=== PATIENT | male | born 1940 | race Caucasian/White ===

== ENCOUNTER 2021-07-16 19:22 | Emergency (ER) | payer MEDICARE, SELFPAY ==
--- NOTE | ~2021-07-16 | CT_ITS ---
EXAMINATION: CT abdomen pelvis w con DATE: 07/16/2021 21:39 INDICATION: Left-sided abdominal pain TECHNIQUE: Computed tomography (CT) of the abdomen and pelvis was performed with 100 CC Omnipaque 350 intravenous contrast. Automated exposure control and iterative reconstruction technique were employe d. Exam dose: 483.35 mGy-cm total exam DLP. COMPARISON: 02/21/2017 CT abdomen pelvis FINDINGS: There is prominent multifocal left lower lobe basilar discoid scarring, also present on . No infiltrate or consolidation is noted at the lung bases. Borderline heart size. Right atrial and ventricular pacemaker leads. No pericardial or pleural effusi on. There are surgical clips around the diaphragmatic hiatus likely due to associated with prior hiatal h ernia repair. Status post Billroth type II partial gastrectomy with gastrojejunostomy. There are numerous stones in the dependent aspect of the gallbladder. Gallbladder wall thickness appe ars within upper limits of normal. No hepatic, splenic, pancreatic or adrenal space-occupying mass le nitish. There are numerous splenic calcified granulomas. There is pancreatic atrophy. 12 mm lower pole right renal cysts and occasional much smaller right renal cysts. There is bilateral renal scarring, much more prominent on the left, consistent with chronic pyeloneph ritis or renal infarcts.. No urinary tract calculus or hydroureteronephrosis. There is prostate enlar gement. History of prostate cancer. There is mild to moderate diffuse thickening of the urinary bladd er wall. There is atherosclerotic calcification but normal caliber of the abdominal aorta and iliac and femora l arteries. No intraperitoneal or retroperitoneal or pelvic mass lesion or adenopathy or ascites. There are numerous diverticula of the colon, primarily in the sigmoid and descending colon. No CT andrés dence of diverticulitis. No bowel obstruction, bowel wall thickening, pneumatosis or intraperitoneal free air. Small fat-containing abdominal hernia. There is a right inguinal hernia which contains a loop of nonobstructed small bowel and fat. There is a fat-containing smaller left inguinal hernia. Old healed left rib fractures. Status post sternotomy. Degenerative changes of the thoracic and lumba r spine. No suspicious osteolytic or osteoblastic lesions are noted. Bilateral hip osteoarthritis. 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 Reviewed, dictated and finalized at [facility]. 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
--- NOTE | ~2021-07-16 | XR_ITS ---
XR ribs LT 2V w CXR 2V DATE: 07/16/2021 20:59 INDICATION: Rib pain, pleuritic pain TECHNIQUE: PA and lateral chest. 3 views of the left ribs. COMPARISON: 02/09/2018 CT chest 01/31/2018 two-view chest FINDINGS: Status post sternotomy. Cardiomegaly. Transvenous dual-lead left-sided pacemaker with leads overlying right atrium and right ventricle. Is aortic calcification, ectasia and tortuosity. There is chronic left lower lung scarring, present on 01/31/2018. No interval pulmonary infiltrate or consolidation, pleural effusion or pulmonary vascular congestion or pneumothorax is evident. There is diffuse osteopenia. There is mild dextro scoliosis and degenerative change of the thoracic s pine. Surgical clips around the diaphragmatic hiatus, present on 01/31/2018. IMPRESSION: Status post sternotomy. Cardiomegaly. Aortic atherosclerosis. Chronic left lower lung scarring Reviewed, dictated and finalized at [facility].
[2021-07-16 19:38] VITALS: BP 132/69; PULSE 85; RESP 16; TEMP 36.7; O2SAT 97
--- NOTE | 2021-07-16 20:44 | ECG_ITS ---
Measurements Intervals Kelly Rate: 71 P: DE: 0 QRS: -59 QRSD: 209 T: 104 QT: 497 QTc: 542 Interpretive Statements ELECTRONIC VENTRICULAR PACEMAKER. ONE INTRINSIC COMPLEXES APPROPRIATELY SENSED ABNORMAL RHYTHM ECG NO PREVIOUS ECG AVAILABLE FOR COMPARISON Electronically Signed On 07-17-2021 16:03:16 CDT by Red Gao M.D.
--- NOTE | 2021-07-16 20:47 | ED.ABDPAIN ---
HPI - Abdominal Pain General Chief Complaint: Abdominal Pain Stated Complaint: abdominal pain Time Seen by Provider: 07/16/21 20:33 Source: patient Mode of arrival: ambulatory Limitations: no limitations History of Present Illness HPI narrative: 81-year-old male comes in today with complaints of left chest/left upper abdominal pain that woke him up out of his sleep at 3 AM. Patient denies any recent trauma but does note he was working out in his garden yesterday. Patient denies shortness of breath, nausea, vomiting, diarrhea, fevers, or any sick contacts. Patient states pain is worse with certain movements and palpation. Related Data Allergies Allergy/AdvReac Type Severity Reaction Status Date / Time latex Allergy Itching Verified 07/16/21 21:06 Review of Systems Review of Systems: CONSTITUTIONAL: Denies fever, chills, or sweats. EYES: Denies visual changes, redness, or discharge. ENT: Denies rhinorrhea, congestion, sore throat, or otalgia. CARDIOVASCULAR: Left chest wall pain. Denies palpitations, or edema. RESPIRATORY: Denies cough or dyspnea. GASTROINTESTINAL: Denies abdominal pain, nausea, vomiting, or diarrhea. GENITOURINARY: Denies dysuria or hematuria. SKIN: Denies rash or itching. MUSCULOSKELETAL: Left upper abdomen pain. Denies back pain, joint pain, or myalgia. NEUROLOGIC: Denies headache, numbness, dizziness, or weakness. PSYCHIATRIC: Denies anxiety or depression. Exam Narrative: CONSTITUTIONAL: Denies fever, chills, or sweats. EYES: Denies visual changes, redness, or discharge. ENT: Denies rhinorrhea, congestion, sore throat, or otalgia. CARDIOVASCULAR: Tenderness on palpation of left lower chest. Denies palpitations, or edema. RESPIRATORY: Denies cough or dyspnea. GASTROINTESTINAL: Tenderness to left upper abdominal pain. Denies nausea, vomiting, or diarrhea. GENITOURINARY: Denies dysuria or hematuria. SKIN: Denies rash or itching. MUSCULOSKELETAL: Denies back pain, joint pain, or myalgia. NEUROLOGIC: Denies headache, numbness, dizziness, or weakness. PSYCHIATRIC: Denies anxiety or depression. Course Course Emergency Course: Lab results, CT results and chest x-ray results reviewed with patient. Plan to discharge patient home Tylenol as needed for pain. Follow-up with primary next week. Patient in agreement with plan of care. Vital Signs Vital signs: Vital Signs Temperature 36.7 C 07/16/21 19:38 Pulse Rate 85 07/16/21 19:38 Respiratory Rate 16 07/16/21 19:38 Blood Pressure 132/69 07/16/21 19:38 Pulse Oximetry 97 07/16/21 19:38 Temperature 36.7 C 07/16/21 19:38 Pulse Rate 71 07/16/21 23:30 Respiratory Rate 18 07/16/21 23:30 Blood Pressure 169/84 H 07/16/21 23:30 Pulse Oximetry 96 07/16/21 23:30 MDM - Abdominal Pain Differential Diagnosis Differential diagnosis: Likely abdominal pain, constipation and other (Left rib fractures, costochondritis,) Medical Records Attestation: I reviewed the patient's medical records. Lab Data Attestation: I reviewed the patient's lab results. Result diagrams: 07/16/21 21:03 07/16/21 21:03 Labs: Lab Results 07/16/21 07/16/21 07/16/21 Range/Units 21:03 21:03 21:13 WBC 8.5 (4.5-10.0) K/mm3 RBC 4.81 (4.6-6.20) M/mm3 Hgb 15.2 (14.0-18.0) g/dL Hct 46.7 (42.0-52.0) % MCV 97.1 (80-100) fl MCH 31.6 (26-34) pg MCHC 32.5 (32-36) g/dl RDW 13.6 (11.5-14.5) % Plt Count 183 (150-375) k/mm3 MPV 9.8 (7.4-10.4) fl Immature Gran % (Auto) 0.4 (0-0.5) % Neut % (Auto) 79.4 H (45.5-73.1) % Lymph % (Auto) 8.6 L (18.3-44.2) % [place] % (Auto) 9.6 H (2.6-8.5) % Eos % (Auto) 1.5 (0-4.4) % Baso % (Auto) 0.5 (0.2-1.2) % Lymph # (Auto) 0.73 L (0.9-3.2) K/mm3 [place] # (Auto) 0.8 H (0.1-0.6) K/mm3 Eos # (Auto) 0.1 (0-0.3) K/mm3 Baso # (Auto) 0.0 (0.0-0.1) K/mm3 Abs Immat Gran (auto) 0.03 (0.00-0.031) K/mm3 Absolute Neuts (au
--- NOTE | 2021-07-16 20:53 | PC.NURSE ---
Pt to imaging at this time.
[2021-07-16 21:09] LABS: Basophils Percent Auto 0.5 % (0.2-1.2); Eosinophils Absolute Auto 0.1 K/mm3 (0-0.3); Eosinophils Percent Auto 1.5 % (0-4.4); Hematocrit 46.7 % (42.0-52.0); Hemoglobin 15.2 g/dL (14.0-18.0); Immature Granulocyte Absolute 0.03 K/mm3 (0.00-0.031); Immature Granulocyte Percent A 0.4 % (0-0.5); Lymphocytes Absolute Auto 0.73 K/mm3 (0.9-3.2); Lymphocytes Percent Auto 8.6 % (18.3-44.2); Mean Corpuscular HGB Conc 32.5 g/dl (32-36); Mean Corpuscular Hemoglobin 31.6 pg (26-34); Mean Corpuscular Volume 97.1 fl (80-100); Mean Platelet Volume 9.8 fl (7.4-10.4); Monocytes Absolute Auto 0.8 K/mm3 (0.1-0.6); Monocytes Percent Auto 9.6 % (2.6-8.5); Neutrophils Absolute Auto 6.7 K/mm3 (1.3-6.7); Neutrophils Percent Auto 79.4 % (45.5-73.1); Platelet Count Result 183 k/mm3 (150-375); Red Blood Count 4.81 M/mm3 (4.6-6.20); Red Cell Distribution Width 13.6 % (11.5-14.5); White Blood Count 8.5 K/mm3 (4.5-10.0)
[2021-07-16 21:10] VITALS: BP 154/76; PULSE 69; RESP 18; O2SAT 99
[2021-07-16 21:19] LABS: Alanine Aminotransferase 14 U/L (4-50); Albumin Level 4.1 g/dL (3.5-5.1); Alkaline Phosphatase 135 U/L (38-126); Anion Gap 7 mmol/L (8-16); Aspartate Amino Transferase 25 U/L (17-59); Bilirubin,Total 0.7 mg/dL (0.2-1.3); Blood Urea Nitrogen 22 mg/dL (9-20); Calcium 8.8 mg/dL (8.4-10.2); Carbon Dioxide 25 mmol/L (22-30); Chloride 105 mmol/L (98-107); Estimated CRCL calculation 49 ml/min; Estimated Glomerular Filt Rate > 60; Glucose 135 mg/dL (65-110); Lipase 31 U/L (23-300); Potassium 4.1 mmol/L (3.4-5.0); Sodium 137 mmol/L (137-145)
[2021-07-16 21:45] VITALS: BP 146/76; PULSE 78; RESP 18; O2SAT 98
[2021-07-16 21:46] LABS: Add Urine Microscopic? YES; Appearance Urine Clear (Clear); Bilirubin Urine Negative (Negative); Blood Urine Negative (Negative); Color Urine Yellow (Yellow); Glucose Urine UA Negative (Negative); Ketones Urine Trace mg/dL (Negative); Leukocyte Esterase Ur Negative LEU/UL (Negative); Mucus Urine Rare /lpf; Nitrate Urine Negative (Negative); Protein Urine Negative (Negative); RBC Urine 0-2 /hpf (0-2); Specific Grav Ur 1.017 (1.001-1.035); Squamous Epithelial Cell Urine Rare /hpf (Few); Urobilinogen Urine Negative mg/dL (<2.0); WBC Urine 0-3 /hpf
[2021-07-16] MEDS: SODIUM CHLORIDE 0.9% IV 1,000 ML 999 ML IV CONT (21:46)
[2021-07-16 22:15] VITALS: BP 165/81; PULSE 71; RESP 18; O2SAT 98
[2021-07-16 23:30] VITALS: BP 169/84; PULSE 71; RESP 18; O2SAT 96
== END 2021-07-16 23:34 | disposition home or self-care (01) ==
PROVIDERS: Emergency Provider Nurse Practitioner Family; PCP Family Medicine Adolescent Medicine
DX: R07.89 Other chest pain (principal); R10.12 Left upper quadrant pain; S29.011S Strain of muscle and tendon of front wall of thorax, sequela; K57.90 Diverticulosis of intestine, part unspecified, without perforation or abscess without bleeding; K80.20 Calculus of gallbladder without cholecystitis without obstruction; K40.20 Bilateral inguinal hernia, without obstruction or gangrene, not specified as recurrent; N40.0 Benign prostatic hyperplasia without lower urinary tract symptoms; I70.0 Atherosclerosis of aorta; I51.7 Cardiomegaly; X58.XXXA Exposure to other specified factors, initial encounter
CPT/HCPCS: 36415; 71046; 71100; 74177; 80053; 81001; 82248; 83690; 85025; 93005; 96360; 99284; J7030; Q9967

== ENCOUNTER 2021-09-22 01:12 | Day surgery (SDC) | payer MEDICARE, SELFPAY ==
--- NOTE | 2021-09-18 09:40 | PC.NURSE ---
Report to the Outpatient Waiting Room, entrance under the green pavilion located off [facility], at time 0730 on date __09/22/21 . OR Time: ___929 . - You and your visitor will be asked a series of questions to screen for COVID 19 for your protection. - Only one visitor is allowed at this time. - The patient visitor is requested to leave or wait in car when not with patient. - A mask is required within the hospital. Patients may have clear liquids (water, carbonated beverages, clear teas, apple juice) until 3 hours prior to surgery with a maximum of 20 ounces. - No food from midnight until time of surgery - Infants may have breast milk until 4 hours before surgery, infant formula 6 hours prior to surgery. - Children will be allowed to drink immediately following surgery. If applicable, please bring a bottle or sippy cup to assist with drinking. Juice, water, soda, and popsicles are readily available. For infants on formula, please bring formula the day of surgery. Pacifiers are allowed. Take the following medications with a SIP of water the morning of surgery: __ADVAIR,BUPROPION, SERTRALINE Medications to discontinue per physician ___DECREASE ASPIRIN TO 81 MG 7 WK PRE OP. ALL VITAMINS AND SUPPLEMENTS 3 DAYS PRE OP Date to take last dose__ASPIRIN DECREASED TO 81MG ON 09/15/21 ALL VIT/SUPP 09/18/21 Please no make-up, nail welsh, hairspray, perfume, deodorant, or body powder the day of surgery. No jewelry (including any body piercings) or valuables the day of surgery, leave them at home. Please take a shower or bath the night before, or the morning of, surgery with an antibacterial soap. Wear comfortable, loose fitting clothing. Children are encouraged to wear pajamas. - Jewelry must be removed prior to entering the operating room. Rings and piercings that are not removed may be cut off. - The hospital will not accept responsibility for valuables. - Please leave all valuables, including medications, at home the day of surgery. HIBICLENS SHOWER MORNING OF SURGERY If you are going home after surgery, a licensed construction driver must drive you home. - NO public transportation without another adult. - We recommend that an adult stay with you for 24 hours following discharge. - We also recommend that you do not drive, make important decision, drink alcoholic beverages, or take any drugs that were not prescribed by your health care provider for at least 24 hours after your discharge time. For Pediatric surgeries, we recommend two adults accompany the child home (only one inside the building at this time). Follow any additional instructions given to you from your surgeon. If you or anyone in your household have experienced Covid symptoms in the past week, please notify your surgeon or the nurse liaison at the phone number below for possible testing. Telephone instructions given to _PATIENT and asked if any additional questions and then verbalized understanding. Patient advised to call surgeon office or pre surgery nurse liaison [phone] if any additional questions.
[2021-09-18 09:47] VITALS: BMI 27.6
--- NOTE | 2021-09-21 14:53 | WPDANESEPPF ---
Anes - Initial Pre Proc Eval Procedure: Operation Date: 09/22/21 09:30 Proposed Procedures p Laparoscopic Bilateral Inguinal Hernia Repair with Mesh Davinci Assisted - Kole Shahid DO <Lenard Howe MD - Last Filed: 09/29/21 11:20> Date/Time: 09/21/21 14:53 <Lenard Howe MD - Last Filed: 09/29/21 11:20> Surgeon: Kole Shahid DO <Lenard Howe MD - Last Filed: 09/29/21 11:20> Pre Op Diagnosis: bilateral ing. hernia repair <Lenard Howe MD - Last Filed: 09/29/21 11:20> Patient Data Age: 81 Gender: M Height: 1.7 m Weight: 79.85 kg <Lenard Howe MD - Last Filed: 09/29/21 11:20> Allergies Allergy/AdvReac Type Severity Reaction Status Date / Time latex Allergy Itching/HIV Verified 09/22/21 07:14 ES <Lenard Howe MD - Last Filed: 09/29/21 11:20> Home Medications Medication Instructions Recorded Confirmed Type aspirin 325 mg tablet 325 mg PO DAILY 07/23/21 09/22/21 History bupropion HCl 300 mg 24 hr tablet, 300 mg PO QAM 07/23/21 09/22/21 History extended release mecobalamin (vitamin B12) 5,000 500 mcg PO HS 07/23/21 09/22/21 History mcg lozenge sertraline 25 mg tablet 25 mg PO DAILY #30 tabs 07/23/21 09/22/21 Rx tamsulosin 0.4 mg capsule 0.4 mg PO DAILY 07/23/21 09/22/21 History telmisartan 40 mg tablet 40 mg PO DAILY 07/23/21 09/22/21 History albuterol sulfate 90 mcg/actuation 2 inh inhalation PRN PRN shortness 09/18/21 09/18/21 History aerosol inhaler of breath or wheezing fluticasone 250 mcg-salmeterol 50 1 inh inhalation BID 09/18/21 09/22/21 History mcg/dose blistr powdr for inhalation (Advair Diskus) hydrocodone 5 mg-acetaminophen 325 1 tablet PO Q4H PRN pain #10 tabs 09/22/21 Rx mg tablet <Lenard Howe MD - Last Filed: 09/29/21 11:20> Patient hx anesthesia problems: none <Guy Jimenes DO - Last Filed: 09/22/21 08:31> Family hx anesthesia problems: none <Guy Jimenes DO - Last Filed: 09/22/21 08:31> Results Review: All pre-operative results and documents have been reviewed as part of the pre-operative evaluation. <Lenard Howe MD - Last Filed: 09/29/21 11:20> [facility] Past Medical History Medical History: Medical History (Updated 09/21/21 @ 14:53 by Lenard Howe MD) Atrial fibrillation CAD (coronary artery disease) COPD (chronic obstructive pulmonary disease) History of kidney stones History of prostate cancer 05/2016 Pacemaker Stomach ulcer <Lenard Howe MD - Last Filed: 09/29/21 11:20> Surgical History Surgical History: Surgical History (Updated 09/21/21 @ 14:53 by Lenard Howe MD) H/O resection of stomach S/P colon resection S/P triple vessel bypass <Lenard Howe MD - Last Filed: 09/29/21 11:20> Family History Family History: Family History Father Cerebrovascular accident Heart disease Hypertension Mother Cancer Sibling Kidney failure Heart failure Other Colon polyp Depression Malignant neoplasm of prostate <Lenard Howe MD - Last Filed: 09/29/21 11:20> Social History Social History: Social History Smoking packs per day: 0.5 Smoking cigarettes per day: 10.0 Years smoked: 60 Smoking pack-years: 30.00 Smoking status: Current every day smoker Tobacco type: cigarettes Alcohol intake: current Drinks per week: 14 Alcohol use details: BEER Substance use: never Substance use type: does not use Gender identity (if verbalized by the patient): Male Sexual Orientation (if Verbalized by the Patient): Straight or Heterosexual Spiritual care concerns: No Agree to blood products: Yes <Lenard Howe MD - Last Filed: 09/29/21 11:20> Anes - Eval Final PreProcedure Day of Procedure 09/21/21 14:53 <Lenard Howe MD - Last Filed
[2021-09-22] VITALS (9 sets, daily range): BP systolic 125–154; BP diastolic 69–103; PULSE 73–74; RESP 14–16; TEMP 36.1–36.3; O2SAT 95–99
[2021-09-22] MEDS: LACTATED RINGERS 1,000 ML 30 ML IV CONT ×2 (08:01→10:10)
[2021-09-22] MEDS: ACETAMINOPHEN 500 MG TABLET 1000 MG PO (08:01)
[2021-09-22] MEDS: KETOROLAC 15 MG/ML VIAL (*BKC) IV PUSH (08:03)
--- NOTE | 2021-09-22 10:08 | WPDHPUPDATE1 ---
History and Physical Update Update Date/Time: 09/22/21 10:08 History and Physical has been reviewed, including an updated exam of the patient. There are NO changes in the patient's condition. Risks, benefits, and alternatives have been discussed and questions answered. Patient agrees to proceed with procedure.
--- NOTE | 2021-09-22 10:08 | PM.IMHP ---
H&P: HPI History of Present Illness Date/Time: 09/22/21 10:08 Chief Complaint: Bilateral inguinal hernia Narrative: This is a 81-year-old man who presents for bilateral hernia repair. He reports no changes since last seen in the office. Review of Systems Review of Systems: All systems reviewed & are unremarkable except as noted in HPI and below Constitutional: Constitutional: Denies chills, Denies fever(s), Denies headache(s) and Denies weight loss Eyes: Eyes: Denies change in vision ENT: Denies dizziness, Denies headache(s), Denies neck mass and Denies throat swelling Cardiovascular: Cardiovascular: Denies chest pain, Denies lightheadedness and Denies dyspnea Respiratory: Respiratory: Denies cough, Denies dyspnea and Denies wheezing Gastrointestinal: Gastrointestinal: Denies abdominal pain, Denies change in bowel habits, Denies nausea and Denies vomiting Genitourinary: Genitourinary: Denies hematuria and Denies dysuria Musculoskeletal: Musculoskeletal: Reports as per HPI Integumentary/Breasts: Skin/Breast: Reports as per HPI Neurologic: Denies dizziness and Denies headache(s) Allergic/Immunologic: Allergic/Immunologic: Denies throat swelling and Denies wheezing [facility] Past Medical History Medical History (Updated 09/21/21 @ 14:53 by Lenard Howe MD) Atrial fibrillation CAD (coronary artery disease) COPD (chronic obstructive pulmonary disease) History of kidney stones History of prostate cancer 05/2016 Pacemaker Stomach ulcer Surgical History Surgical History (Updated 09/21/21 @ 14:53 by Lenard Howe MD) H/O resection of stomach S/P colon resection S/P triple vessel bypass Family History Family History Father Cerebrovascular accident Heart disease Hypertension Mother Cancer Sibling Kidney failure Heart failure Other Colon polyp Depression Malignant neoplasm of prostate Social History Social History Smoking packs per day: 0.5 Smoking cigarettes per day: 10.0 Years smoked: 60 Smoking pack-years: 30.00 Smoking status: Current every day smoker Tobacco type: cigarettes Alcohol intake: current Drinks per week: 14 Alcohol use details: BEER Substance use: never Substance use type: does not use Living arrangements: alone Gender identity (if verbalized by the patient): Male Sexual Orientation (if Verbalized by the Patient): Straight or Heterosexual Spiritual care concerns: No Agree to blood products: Yes Meds Home Medications and Allergies Home Medications Medication Instructions Recorded Confirmed Type aspirin 325 mg tablet 325 mg PO DAILY 07/23/21 09/22/21 History bupropion HCl 300 mg 24 hr tablet, 300 mg PO QAM 07/23/21 09/22/21 History extended release mecobalamin (vitamin B12) 5,000 500 mcg PO HS 07/23/21 09/22/21 History mcg lozenge sertraline 25 mg tablet 25 mg PO DAILY #30 tabs 07/23/21 09/22/21 Rx tamsulosin 0.4 mg capsule 0.4 mg PO DAILY 07/23/21 09/22/21 History telmisartan 40 mg tablet 40 mg PO DAILY 07/23/21 09/22/21 History albuterol sulfate 90 mcg/actuation 2 inh inhalation PRN PRN shortness 09/18/21 09/18/21 History aerosol inhaler of breath or wheezing fluticasone 250 mcg-salmeterol 50 1 inh inhalation BID 09/18/21 09/22/21 History mcg/dose blistr powdr for inhalation (Advair Diskus) Allergies Allergy/AdvReac Type Severity Reaction Status Date / Time latex Allergy Itching/HIV Verified 09/22/21 07:14 ES Vital Signs Vital Signs - 24 hr 09/22/21 08:07 Temperature 36.1 C L Pulse Rate 73 Respiratory Rate 16 Blood Pressure 125/103 H Pulse Oximetry 98 Oxygen Delivery Room Air Exam Const: General: no acute distress and alert Orientation/consciousness: patient oriented x3 HENMT: Head: normocephalic and atraumatic Ears: hearing grossly normal bilaterally Gener
[2021-09-22] MEDS: ceFAZolin 2 GM/D5W 50 ML 2 GM/50 ML BAG IVPB (10:49)
--- NOTE | 2021-09-22 12:32 | W.PM.PROC2 ---
Procedure Note - Detailed Date of Procedure 09/22/21 Pre-op Diagnosis Bilateral inguinal hernia Post-op Diagnosis Same (Bilateral indirect inguinal hernia) Procedure Performed Laparoscopic bilateral inguinal hernia repair with mesh, da Denny assisted Surgeon Kole Shahid DO Anesthesia General and Local (0.5% bupivacaine with epinephrine) Indications This is a 81-year-old man who presented with a right groin bulge that was causing him some discomfort. He 1st noticed some symptoms about [address] was performed which showed evidence of a right inguinal hernia containing a loop of bowel and fat and a small fat containing left inguinal hernia. Discussions were made with the patient about treatment options and decision was made to proceed with robotic assisted laparoscopic bilateral inguinal hernia repair with mesh. Findings Laparoscopic bilateral inguinal hernia repair was performed. The patient was found to have a moderate-sized indirect right inguinal hernia on the right and a very small indirect inguinal hernia on the left. Robotic transabdominal preperitoneal approach was utilized. A preperitoneal pocket was created on each side and large Bard 3DMax mid mesh was placed on each side overlying each myopectineal orifice. No specimens were obtained for pathology. Description of Procedure Procedure as well as risks, benefits, and alternatives were discussed with the patient. Written consent was obtained and placed in chart prior to procedure. Patient was brought back to surgical suite. Hewas placed supine on operating table. Time-out was done to confirm patient and procedure. Hewas then intubated by Anesthesia Department. Hisabdomen was prepped and draped in sterile fashion using chlorhexidine prep. 0.5% bupivacaine with epinephrine was infiltrated at each location for incision. An 8 mm incision was made in the left lateral abdomen, and a 5 mm Optiview trocar was advanced through the abdominal layers under direct visualization. Once inside the abdominal cavity, carbon dioxide insufflation was used to create a pneumoperitoneum. A camera was inserted and the abdominal cavity was inspected. The patient was placed in slight Trendelenburg position. An 8 millimeter incision was made on the right lateral abdomen and an 8 millimeter trocar was inserted under direct visualization. Another 8 millimeter incision was made just superior to the umbilicus and an 8 millimeter trocar was inserted under direct visualization. The 5 mm port was then removed and this was replaced with another 8 mm robotic port. The robotic arms were brought up to the patient's bedside and secured to the ports. The camera and instruments were inserted. I then moved over to the robotic console and took control of the camera and instruments. After careful inspection of the abdominal cavity, I began scoring the peritoneum along the right lower quadrant using scissors with electrocautery. The preperitoneal plane was entered and this was carefully dissected caudally along the inferior epigastric vessels. Careful dissection with scissors with electrocautery and blunt dissection was used to continue this dissection. I dissected far enough laterally to allow for mesh placement, and also dissected medially to identify the pubic arch and Tremaine's ligament. The hernia sac was identified and carefully dissected posteriorly. The cord contents were also identified and the peritoneum was carefully dissected far enough posteriorly to allow for mesh placement. Once an adequate pocket was created, I then placed the mesh within the preperitoneal pocket and carefully unfolded it. The mesh was centered on the hernia defect with adequate overlap circumferentially. The inferior edge of the mesh was inspected to ensure that it was far enough away from the peritoneal edge. The mesh appeared in proper position overlying the entire myopectineal orifice. The mesh was secured using 3-0 Vicryl simple inter
--- NOTE | 2021-09-22 13:22 | SUR.PHASEI ---
1310: Simple mask removed.
== END 2021-09-22 15:04 | disposition home or self-care (01) ==
PROVIDERS: PCP Family Medicine Adolescent Medicine; Visit Provider Surgery
PROC: 8E0Y4CZ Robotic Assisted Procedure of Lower Extremity, Percutaneous Endoscopic Approach (ICD-10-PCS; CPT 49650; principal; 2021-09-22 09:30)
DX: K40.20 Bilateral inguinal hernia, without obstruction or gangrene, not specified as recurrent (principal); I48.91 Unspecified atrial fibrillation; I25.10 Atherosclerotic heart disease of native coronary artery without angina pectoris; J44.9 Chronic obstructive pulmonary disease, unspecified; Z95.0 Presence of cardiac pacemaker; Z85.46 Personal history of malignant neoplasm of prostate; F17.210 Nicotine dependence, cigarettes, uncomplicated; Z79.82 Long term (current) use of aspirin; Z79.51 Long term (current) use of inhaled steroids
CPT/HCPCS: 49650; S2900; 36415; 86850; 86900; 86901; A9270; C1781; J0690; J1100; J1170; J1885; J2405; J2704; J2710; J3010; J7030; J7120

== ENCOUNTER 2022-01-05 13:06 | Outpatient (CLI) | payer MEDICARE, SELFPAY ==
--- NOTE | ~2022-01-05 | CT_ITS ---
EXAMINATION: CT brain wo con DATE: 01/05/2022 13:46 INDICATION: Frequent falls. Dizziness. TECHNIQUE: Computed tomography (CT) of the head was performed without intravenous contrast. The mA wa s adjusted according to patient size. Iterative reconstruction technique was employed. Exam dose: 60 5.33 mGy-cm total exam DLP. COMPARISON: 07/10/2011 CT brain FINDINGS: There is a chronic left cerebellar hemispheric infarct. Small lacunar right cerebellar lorene spheric infarct. Bilateral carotid siphon internal carotid artery calcifications. There is nonspecific diminished attenuation cerebral white matter, likely due to chronic small vessel ischemic changes. There is central and cortical cerebral volume loss. No intracranial mass lesion or recent cerebrovascular accident, midline shift or mass effect effect. No subdural or epidural hematoma. Bilateral ocular lens replacements. The mastoid air cells and included paranasal sinuses are normally developed and aerated. No fracture or bone destruction of the cranial vault. IMPRESSION: Chronic left cerebellar hemispheric infarct and chronic right cerebellar hemispheric lac unar infarct Cerebral atherosclerosis and chronic small vessel ischemic changes of the cerebral white matter Cerebral volume loss No acute intracranial finding Reviewed, dictated and finalized at [facility]. Reviewed, dictated and finalized at location A. IMPRESSION: Chronic left cerebellar hemispheric infarct and chronic right cere bellar hemispheric lacunar infarct Cerebral atherosclerosis and chronic small vessel ischemic changes of the cereb ral white matter Cerebral volume loss No acute intracranial finding
== END 2022-01-05 13:07 | disposition home or self-care (01) ==
LOC: ANHIMG 13:10
PROVIDERS: PCP Family Medicine Adolescent Medicine; Visit Provider Physician Assistant
DX: R29.6 Repeated falls (principal); I67.2 Cerebral atherosclerosis
CPT/HCPCS: 70450

== ENCOUNTER 2022-04-08 11:50 | Emergency (ER) | payer MEDICARE, SELFPAY ==
--- NOTE | ~2022-04-08 | XR_ITS ---
EXAMINATION: XR chest 2V DATE: 04/08/2022 12:38 INDICATION: Weakness, hypertension TECHNIQUE: PA and lateral views of the chest are obtained. COMPARISON: 07/16/2021 FINDINGS: The lungs are free of acute opacities. No pleural effusion or pneumothorax. Cardiomegaly is noted. Median sternotomy wires and mediastinal surgical clips are seen, likely from prior coronary a rtery bypass grafting. A dual-lead cardiac pacemaker of the left chest wall ends with leads in expect ed locations. Healed left-sided rib fractures are noted. There is moderate thoracic spondylosis. Surg ical changes are noted near the gastroesophageal junction. Calcified pulmonary nodules and calcified bilateral hilar lymph nodes are consistent with old granulomatous disease. IMPRESSION: 1. No acute cardiopulmonary abnormality. Reviewed, dictated and finalized at location A. TH AND FITNESS PROFESSOR
--- NOTE | 2022-04-08 11:57 | ECG_ITS ---
Measurements Intervals [place] Rate: 84 P: [place]: 0 QRS: -60 QRSD: 190 T: 106 QT: 437 QTc: 518 Interpretive Statements ELECTRONIC VENTRICULAR PACEMAKER PACED RHYTHM ALTERNATES WITH INTRINSIC RHYTHM WITH APPROPRIATE SENSING AND CAPTURE NONSPECIFIC T-WAVE ABNORMALITY ABNORMAL RHYTHM ECG COMPARED TO ECG 07/16/2021 21:50:08 NO SIGNIFICANT CHANGES Electronically Signed On 04-09-2022 7:32:58 VALIDATION LEADER by Red Gao M.D.
[2022-04-08 12:05] VITALS: BP 152/90; PULSE 79; RESP 16; TEMP 36.4; O2SAT 99
[2022-04-08 12:33] LABS: Basophils Absolute Auto 0.1 K/mm3 (0.0-0.1); Basophils Percent Auto 0.6 % (0.2-1.2); Eosinophils Absolute Auto 0.1 K/mm3 (0-0.3); Hematocrit 49.1 % (42.0-52.0); Hemoglobin 15.8 g/dL (14.0-18.0); Immature Granulocyte Absolute 0.02 K/mm3 (0.00-0.031); Immature Granulocyte Percent A 0.2 % (0-0.5); Lymphocytes Absolute Auto 0.79 K/mm3 (0.9-3.2); Lymphocytes Percent Auto 9.6 % (18.3-44.2); Mean Corpuscular HGB Conc 32.2 g/dl (32-36); Mean Corpuscular Hemoglobin 31.5 pg (26-34); Mean Platelet Volume 10.1 fl (7.4-10.4); Monocytes Absolute Auto 0.8 K/mm3 (0.1-0.6); Monocytes Percent Auto 10.1 % (2.6-8.5); Neutrophils Absolute Auto 6.5 K/mm3 (1.3-6.7); Neutrophils Percent Auto 78.5 % (45.5-73.1); Platelet Count Result 194 k/mm3 (150-375); Red Blood Count 5.01 M/mm3 (4.6-6.20); Red Cell Distribution Width 13.9 % (11.5-14.5); White Blood Count 8.2 K/mm3 (4.5-10.0)
[2022-04-08 12:48] VITALS: PULSE 71; RESP 24; O2SAT 98
[2022-04-08 12:59] LABS: Alanine Aminotransferase 26 U/L (6-50); Albumin Level 4.7 g/dL (3.5-5.1); Alkaline Phosphatase 130 U/L (38-126); Anion Gap 5 mmol/L (8-16); Aspartate Amino Transferase 28 U/L (17-59); Bilirubin,Total 0.6 mg/dL (0.2-1.3); Blood Urea Nitrogen 13 mg/dL (9-20); Calcium 9.3 mg/dL (8.4-10.2); Carbon Dioxide 29 mmol/L (22-30); Chloride 105 mmol/L (98-107); Estimated CRCL calculation 58 ml/min; Estimated Glomerular Filt Rate > 60; Glucose 100 mg/dL (65-110); Potassium 4.4 mmol/L (3.4-5.0); Sodium 139 mmol/L (137-145)
--- NOTE | 2022-04-08 13:32 | ED.WEAKNESS ---
HPI - Weakness General Chief complaint: Weakness Stated complaint: lethargic Time Seen by Provider: 04/08/22 12:20 Source: patient and family Mode of arrival: ambulatory Limitations: no limitations History of Present Illness HPI Narrative: 82-year-old with a history of hypertension and CAD, A. fib s/p pacemaker here with complaints of weakness for past 3 to 4 months. Patient states that he usually used to walk for 4 miles a day for the past 3 months he is unable to walk 2 blocks at a given stretcher. He states that he feels extremely weak. He denied any chest pain or shortness of breath. No history of fever or chills. He denies any nausea, vomiting or abdominal pain. Patient states that he has seen his primary Dr. Stratton who ordered lab work however patient decided to come to the ER for work-up. MD Complaint: generalized weakness Onset (ago): month(s) (4) Duration: constant Location: generalized Relieving factors: none Exacerbating factors: none Associated symptoms: denies other symptoms Related Data Home Medications Medication Instructions Recorded Confirmed aspirin 325 mg tablet 325 mg PO DAILY 07/23/21 04/07/22 mecobalamin (vitamin B12) 5,000 500 mcg PO HS 07/23/21 04/07/22 mcg lozenge tamsulosin 0.4 mg capsule 0.4 mg PO DAILY 07/23/21 04/07/22 telmisartan 40 mg tablet 40 mg PO DAILY 07/23/21 04/07/22 Allergies Allergy/AdvReac Type Severity Reaction Status Date / Time latex Allergy Itching/HIV Verified 04/07/22 09:42 ES Penicillins AdvReac Unknown Unknown Verified 04/07/22 09:42 Review of Systems Review of Systems: All systems reviewed & are unremarkable except as noted in HPI and below Constitutional: Constitutional: Reports no additional constitutional complaints Eyes: Eyes: Reports no additional eye complaints ENT: Reports system reviewed and no additional complaints, except as documented Cardiovascular: Cardiovascular: Reports no additional cardiovascular complaints Respiratory: Respiratory: Reports no additional respiratory complaints Gastrointestinal: Gastrointestinal: Reports no additional gastrointestinal complaints Musculoskeletal: Musculoskeletal: Reports no additional musculoskeletal complaints Integumentary/Breasts: Skin/Breast: Reports system reviewed and no additional complaints, except as docu Neurologic: Reports system reviewed and no additional complaints, except as documented Endocrine: Endocrine: Reports no additional endocrine complaints Hematologic/Lymphatic: Hematologic/Lymphatic: Reports no additional hematologic/lymphatic complaints [facility] Past Medical History Medical History Atrial fibrillation CAD (coronary artery disease) COPD (chronic obstructive pulmonary disease) History of kidney stones History of prostate cancer 05/2016 Pacemaker Stomach ulcer Surgical History Surgical History H/O resection of stomach History of bilateral carpal tunnel release (2013) Hx of inguinal hernia repair Laparoscopic bilateral inguinal hernia repair with mesh, da Denny assisted 09/22/2021 S/P colon resection S/P triple vessel bypass Family History Family History Father Cerebrovascular accident Heart disease Hypertension Mother Cancer Sibling Kidney failure Heart failure Other Colon polyp Depression Malignant neoplasm of prostate Social History Social History Smoking packs per day: 0.5 Smoking cigarettes per day: 10.0 Years smoked: 60 Smoking pack-years: 30.00 Smoking status: Current every day smoker Tobacco type: cigarettes Alcohol intake: current Drinks per week: 14 Alcohol use details: BEER Substance use: never Substance use type: does not use Gender identity (if verbalized by the patient): Male Sexual Orientatio
[2022-04-08 13:38] VITALS: PULSE 74; RESP 19; O2SAT 98
[2022-04-08 13:45] VITALS: BP 185/90; PULSE 82; RESP 25; O2SAT 98
== END 2022-04-08 14:06 | disposition home or self-care (01) ==
LOC: ANHED 13:51
PROVIDERS: Emergency Medicine; Emergency Provider Family Medicine; PCP Family Medicine Adolescent Medicine
DX: R53.1 Weakness (principal); I48.91 Unspecified atrial fibrillation; I25.10 Atherosclerotic heart disease of native coronary artery without angina pectoris; I10 Essential (primary) hypertension; J44.9 Chronic obstructive pulmonary disease, unspecified; Z95.1 Presence of aortocoronary bypass graft; Z95.0 Presence of cardiac pacemaker; Z87.442 Personal history of urinary calculi; Z85.46 Personal history of malignant neoplasm of prostate; Z79.82 Long term (current) use of aspirin; F17.210 Nicotine dependence, cigarettes, uncomplicated; R94.31 Abnormal electrocardiogram [ECG] [EKG]
CPT/HCPCS: 36415; 71046; 80053; 85025; 93005; 99283

== ENCOUNTER 2022-04-26 12:30 | Emergency (ER) | payer MEDICARE, SELFPAY ==
--- NOTE | ~2022-04-26 | XR_ITS ---
EXAMINATION: XR chest 2V Exam Date/Time: 04/26/2022 14:10 PRODUCTION CONTROLLER HISTORY: productive cough x 2months, SOB Comparison: 01/31/2018 04/08/2022. RESULT: Lines, tubes, and devices: Left chest pacer with intact leads. Fractured superior sternotomy wires, in stable position. Lungs and pleura: Patchy subsegmental left mid and right lower lobe airspace disease, with coarse in terstitial opacities in the left lung base. Cardiomediastinal silhouette: Stable. Other: No acute osseous or upper abdominal finding. IMPRESSION: Patchy bilateral airspace disease may reflect infection in the appropriate clinical context. This fin ding should be followed after appropriate time and treatment, to demonstrate resolution. Reviewed, dictated and finalized at location [facility]. UCTION CONTROLLER IMPRESSION: Patchy bilateral airspace disease may reflect infection in the appropriate clin ical context. This finding should be followed after appropriate time and treatm ent, to demonstrate resolution.
[2022-04-26 12:33] VITALS: BP 130/90; PULSE 88; RESP 14; TEMP 36.7; O2SAT 95
--- NOTE | 2022-04-26 13:45 | ED.SOB ---
HPI - SOB/Dyspnea General Chief Complaint: Shortness of Breath/Dyspnea Stated Complaint: shortness of breath, weakness and fatigue Time Seen by Provider: 04/26/22 13:36 History of Present Illness HPI Narrative: Pt presents with SOB and generalized weakness progressivley worsening over the last month. Pt has a cough productive of yellow sputum. Pt says he is so weak he has trouble getting out of the chair. Pt denies fever or CP or urinary symptoms. Related Data Home Medications Medication Instructions Recorded Confirmed aspirin 325 mg tablet 325 mg PO DAILY 07/23/21 04/07/22 mecobalamin (vitamin B12) 5,000 500 mcg PO HS 07/23/21 04/07/22 mcg lozenge tamsulosin 0.4 mg capsule 0.4 mg PO DAILY 07/23/21 04/07/22 telmisartan 40 mg tablet 40 mg PO DAILY 07/23/21 04/07/22 Allergies Allergy/AdvReac Type Severity Reaction Status Date / Time latex Allergy Itching/HIV Verified 04/07/22 09:42 ES Penicillins AdvReac Unknown Unknown Verified 04/07/22 09:42 Review of Systems Review of Systems: All systems reviewed & are unremarkable except as noted in HPI and below PMFSH Past Medical History Medical History Atrial fibrillation CAD (coronary artery disease) COPD (chronic obstructive pulmonary disease) History of kidney stones History of prostate cancer 05/2016 Pacemaker Stomach ulcer Surgical History Surgical History H/O resection of stomach History of bilateral carpal tunnel release (2013) Hx of inguinal hernia repair Laparoscopic bilateral inguinal hernia repair with mesh, da Denny assisted 09/22/2021 S/P colon resection S/P triple vessel bypass Family History Family History Father Cerebrovascular accident Heart disease Hypertension Mother Cancer Sibling Kidney failure Heart failure Other Colon polyp Depression Malignant neoplasm of prostate Social History Social History Smoking packs per day: 0.5 Smoking cigarettes per day: 10.0 Years smoked: 60 Smoking pack-years: 30.00 Smoking status: Current every day smoker Tobacco type: cigarettes Alcohol intake: current Drinks per week: 14 Alcohol use details: BEER Substance use: never Substance use type: does not use Gender identity (if verbalized by the patient): Male Sexual Orientation (if Verbalized by the Patient): Straight or Heterosexual Spiritual care concerns: No Agree to blood products: Yes Exam Const: General: healthy appearing Nutritional Appearance: well nourished Orientation/consciousness: patient oriented x3 Limitations: no limitations HENMT: Head: normal to inspection Eyes: Conjunctivae: conjunctivae normal Neck: Neck: normal visual inspection and no lymphadenopathy Chest: Chest palpation & inspection: normal inspection of the chest Resp: Effort & Inspection: normal respiratory effort Auscultation: clear to auscultation bilaterally Cardio: Rate: regular rate Rhythm: regular rhythm GI: GI Palp: Yes Soft to palpation and No Tenderness to palpation present (GI) Auscultation: normal bowel sounds Skin: General skin exam: normal color Rashes: no rashes Neuro: General: patient oriented x3, moves all extremities, no meningeal signs and no focal motor deficits Speech: normal speech Extrem: General: normal to inspection and no clubbing, cyanosis or edema Psych: Mental Status: mental status grossly normal Affect: normal affect Attitude: cooperative Course Vital Signs Vital signs: Vital Signs Temperature 98.1 F 04/26/22 12:33 Pulse Rate 88 04/26/22 12:33 Respiratory Rate 14 04/26/22 12:33 Blood Pressure 130/90 04/26/22 12:33 Pulse Oximetry 95 04/26/22 12:33 Temperature 98.1 F 04/26/22 12:33 Pulse Rate 88 04/26/22 14:16 Respiratory Rate 23 H
[2022-04-26 13:50] VITALS: PULSE 89; RESP 25
[2022-04-26] MEDS: ALBUTEROL SULFATE NEB 2.5 MG/3 ML INH 5 MG INHALATION (13:52)
[2022-04-26] MEDS: IPRATROPIUM BR 0.02% INH SOLN 0.5 MG/2.5 ML VIAL INHALATION (13:52)
[2022-04-26 14:01] VITALS: PULSE 86; RESP 20
[2022-04-26 14:16] VITALS: BP 146/81; PULSE 88; RESP 23; O2SAT 93
[2022-04-26] MEDS: methylPREDNISolone SOD SUCC 125 MG VIAL IV PUSH ×2 (14:29→16:28)
[2022-04-26 14:43] LABS: Basophils Percent Auto 0.3 % (0.2-1.2); Eosinophils Percent Auto 0.1 % (0-4.4); Hematocrit 49.4 % (42.0-52.0); Hemoglobin 16.4 g/dL (14.0-18.0); Immature Granulocyte Absolute 0.04 K/mm3 (0.00-0.031); Immature Granulocyte Percent A 0.4 % (0-0.5); Lymphocytes Absolute Auto 0.47 K/mm3 (0.9-3.2); Lymphocytes Percent Auto 4.2 % (18.3-44.2); Mean Corpuscular HGB Conc 33.2 g/dl (32-36); Mean Corpuscular Hemoglobin 31.5 pg (26-34); Mean Platelet Volume 9.8 fl (7.4-10.4); Monocytes Absolute Auto 1.1 K/mm3 (0.1-0.6); Monocytes Percent Auto 10.3 % (2.6-8.5); Neutrophils Absolute Auto 9.4 K/mm3 (1.3-6.7); Neutrophils Percent Auto 84.7 % (45.5-73.1); Platelet Count Result 205 k/mm3 (150-375); Red Cell Distribution Width 13.4 % (11.5-14.5); White Blood Count 11.1 K/mm3 (4.5-10.0)
[2022-04-26 14:50] LABS: INR 1.1; Prothrombin Time 13.8 Seconds (11.1-14.7)
[2022-04-26 14:51] LABS: Partial Thromboplastin Time 30.8 SECONDS (22.3-36.8)
[2022-04-26 14:55] LABS: Alanine Aminotransferase 26 U/L (6-50); Albumin Level 4.5 g/dL (3.5-5.1); Alkaline Phosphatase 133 U/L (38-126); Anion Gap 8 mmol/L (8-16); Aspartate Amino Transferase 31 U/L (17-59); Bilirubin,Total 1.4 mg/dL (0.2-1.3); Blood Urea Nitrogen 24 mg/dL (9-20); Calcium 9.4 mg/dL (8.4-10.2); Carbon Dioxide 27 mmol/L (22-30); Chloride 97 mmol/L (98-107); Estimated CRCL calculation 49 ml/min; Estimated Glomerular Filt Rate > 60; Glucose 115 mg/dL (65-110); Magnesium 2.1 mg/dL (1.6-2.3); Potassium 4.1 mmol/L (3.4-5.0); Sodium 132 mmol/L (137-145)
[2022-04-26 15:05] LABS: NT Pro B Type Natriuretic Pept 2330 pg/mL (5-100); Troponin I 0.028 ng/mL (0.000-0.034)
[2022-04-26 15:55] LABS: Influenza A QL RT-PCR Negative (Negative); Influenza B QL RT-PCR Negative (Negative); RSV RNA, RT-PCR Negative (Negative); SARS-CoV-2 RNA PCR Negative
== END 2022-04-26 17:34 | disposition home or self-care (01) ==
PROVIDERS: Emergency Provider Emergency Medicine; PCP Family Medicine Adolescent Medicine
DX: J44.0 Chronic obstructive pulmonary disease with (acute) lower respiratory infection (principal); J44.1 Chronic obstructive pulmonary disease with (acute) exacerbation; Z20.822 Contact with and (suspected) exposure to COVID-19; I48.91 Unspecified atrial fibrillation; I25.10 Atherosclerotic heart disease of native coronary artery without angina pectoris; J44.9 Chronic obstructive pulmonary disease, unspecified; Z90.3 Acquired absence of stomach [part of]; Z90.49 Acquired absence of other specified parts of digestive tract; Z95.1 Presence of aortocoronary bypass graft; Z85.46 Personal history of malignant neoplasm of prostate; Z87.442 Personal history of urinary calculi; Z79.82 Long term (current) use of aspirin; F17.210 Nicotine dependence, cigarettes, uncomplicated
CPT/HCPCS: 36415; 71046; 80053; 83735; 83880; 84484; 85025; 85610; 85730; 87637; 94640; 96365; 96375; 96376; 99284; J0456; J2930

== ENCOUNTER 2022-05-06 08:35 | Emergency (ER) | payer MEDICARE, SELFPAY ==
[2022-05-06] VITALS (14 sets, daily range): BP systolic 132–181; BP diastolic 58–119; PULSE 81–105; RESP 16–24; TEMP 36.4–36.8; O2SAT 96–100
--- NOTE | ~2022-05-06 | XR_ITS ---
EXAMINATION: XR shoulder LT 1V DATE: 05/06/2022 12:34 INDICATION: Left shoulder dislocation status post reduction. TECHNIQUE: A single view of left shoulder was obtained. COMPARISON: Left shoulder radiographs 05/06/2022 FINDINGS: There is anterior dislocation of left humeral head with respect to glenoid. No fracture. Th ere is moderate osteoarthritis of the acromioclavicular joint. Median sternotomy wires and mediastina l surgical clips are seen, likely from prior coronary artery bypass grafting. A pacer is noted. There are old healed left rib fractures. IMPRESSION: 1. Persistent anterior left shoulder dislocation. Reviewed, dictated and finalized at location A. FIRE CHARGER OPERATOR
--- NOTE | ~2022-05-06 | XR_ITS ---
Left Shoulder Technique: AP and scapular Y views were obtained. Clinical History: Pain, injury Findings: Anterior inferior dislocation of the left humeral head is present. AC joint intact. No defi nite acute fracture seen. Probable subacute to chronic fractures of the left fourth, fifth,, 6, and s eventh ribs. Soft tissues are unremarkable. Impression: Anteroinferior dislocation of the left humeral head. No definite acute fracture. Multiple subacute to chronic left rib fracture deformities, as noted above. Reviewed, dictated and finalized at location M. INIST HELPER Impression: Anteroinferior dislocation of the left humeral head. No definite acute fracture. Multiple subacute to chronic left rib fracture deformities, as noted above.
--- NOTE | ~2022-05-06 | CT_ITS ---
CT head without contrast Indication: Status post fall COMPARISON: 01/05/2022 Technique: Serial scans were obtained through the brain without the administration of contrast. Dose reduction technique was used on this scan by utilizing automated exposure control and iterative recon struction technique. The dose-length product (DLP) was 832.33 mGy-cm. Findings: There is no evidence of intracranial hemorrhage, mass lesion, or acute infarct. The ventri cles and subarachnoid spaces are dilated, consistent with mild to moderate atrophy. Low attenuation regions are seen within the periventricular white matter bilaterally, likely representing changes fro m chronic microvascular ischemic disease. There is no evidence of edema, mass effect or midline shif t. The visualized paranasal sinuses and mastoid air cells are clear. Impression: No intracranial hemorrhage, mass, or acute infarct. Atrophy and chronic white matter changes, as above. Reviewed, dictated and finalized at location . RNATIONAL MARKETING EXECUTIVE Impression: No intracranial hemorrhage, mass, or acute infarct. Atrophy and chronic white matter changes, as above.
--- NOTE | ~2022-05-06 | XR_ITS ---
EXAMINATION: XR shoulder LT 1V DATE: 05/06/2022 13:12 INDICATION: Left shoulder dislocation status post reduction. TECHNIQUE: A single view of left shoulder was obtained. COMPARISON: Left shoulder radiograph at 12:26 PM FINDINGS: Bone alignment is normal. No acute fracture. There is mild osteoarthritis of glenohumeral j oint and moderate osteoarthritis of acromioclavicular joint. There are multiple old healed left rib f ractures. A pacer is noted. IMPRESSION: 1. Normal bone alignment. 2. Polyarticular osteoarthritis. Reviewed, dictated and finalized at location A. THCARE ADMINISTRATOR
--- NOTE | ~2022-05-06 | XR_ITS ---
Left elbow Technique: AP, oblique, and lateral views were obtained. Clinical History: Pain Findings: No acute fracture or dislocation is seen. Osseous alignment is anatomic. Joint spaces are p reserved. There is no displacement of the fat pads, and soft tissues are unremarkable. Impression: Unremarkable radiographs. Reviewed, dictated and finalized at [facility]. ANICAL LEAD Impression: Unremarkable radiographs.
--- NOTE | ~2022-05-06 | XR_ITS ---
Left Humerus Technique: AP and lateral views were obtained. Clinical History: Pain Findings: Anterior inferior dislocation of the left humeral head present. No acute fracture identifie d. Probable subacute to chronic left rib fracture deformities are noted. Visualized joint spaces are grossly preserved. Soft tissues are unremarkable. Impression: Anteroinferior dislocation of the left humeral head. Probable subacute to chronic left rib fracture deformities. Reviewed, dictated and finalized at location . L ANALYST Impression: Anteroinferior dislocation of the left humeral head. Probable subacute to chronic left rib fracture deformities.
--- NOTE | ~2022-05-06 | XR_ITS ---
EXAMINATION: XR ribs LT 2V w CXR 2V DATE: 05/06/2022 12:13 INDICATION: Fall. Left rib fractures. TECHNIQUE: Frontal and lateral views of the chest and 2 views on 4 radiographs of the left ribs were obtained. COMPARISON: Chest 2 views 04/26/2022 FINDINGS: CHEST TWO VIEWS: The patient is rotated to his left. There is mild atelectasis at left lung base. No pleural effusion or pneumothorax. Cardiomegaly is noted. Median sternotomy wires and mediastinal surg ical clips are seen, likely from prior coronary artery bypass grafting. There is a left chest wall pa cer with leads in the right atrium and right ventricle. There is anterior left shoulder dislocation. LEFT RIBS: There are multiple old healed left rib fractures. IMPRESSION: 1. Anterior left shoulder dislocation. 2. No acute rib fracture. 3. Mild atelectasis at left lung base. 4. Cardiomegaly. Reviewed, dictated and finalized at location A. GE GROWER
--- NOTE | 2022-05-06 10:32 | ED.UPPEXIN ---
HPI - Extremity Injury (Upper) General Chief Complaint: Extremity Injury, Upper <Fay Anderson PA-C - Last Filed: 05/06/22 14:32> Stated Complaint: fall with LUE pain <DOMINIC Pimentel Last Filed: 05/06/22 14:32> Time Seen by Provider: 05/06/22 10:13 <DOMINIC Pimentel Last Filed: 05/06/22 14:32> Source: patient <DOMINIC Pimentel Last Filed: 05/06/22 14:32> Mode of arrival: ambulatory <DOMINIC Pimentel Last Filed: 05/06/22 14:32> Limitations: no limitations <DOMINIC Pimentel Last Filed: 05/06/22 14:32> History of Present Illness HPI narrative: This is a 82 year old male that presents to the ER after a fall yesterday with left shoulder pain. Reports he tripped while walking into his home. He is unsure if he hit his head. He did not lose consciousness. Reports left shoulder pain with decreased ROM. Denies neck pain, back pain, chest pain, shortness of breath, or vomiting. <DOMINIC Pimentel Last Filed: 05/06/22 14:32> Related Data Home Medications: Home Medications Medication Instructions Recorded Confirmed aspirin 325 mg tablet 325 mg PO DAILY 07/23/21 04/07/22 mecobalamin (vitamin B12) 5,000 500 mcg PO HS 07/23/21 04/07/22 mcg lozenge tamsulosin 0.4 mg capsule 0.4 mg PO DAILY 07/23/21 04/07/22 telmisartan 40 mg tablet 40 mg PO DAILY 07/23/21 04/07/22 <DOMINIC Pimentel Last Filed: 05/06/22 14:32> Allergies/Adverse Reactions: Allergies Allergy/AdvReac Type Severity Reaction Status Date / Time latex Allergy Itching/HIV Verified 04/07/22 09:42 ES Penicillins AdvReac Unknown Unknown Verified 04/07/22 09:42 <DOMINIC Pimentel Last Filed: 05/06/22 14:32> Review of Systems Review of Systems: CONSTITUTIONAL: Denies fever EYES: Denies visual changes CARDIOVASCULAR: Denies chest pain, or edema. RESPIRATORY: Denies dyspnea. GASTROINTESTINAL: Denies vomiting MUSCULOSKELETAL: Reports joint pain and myalgia. Denies back pain NEUROLOGIC: Denies headache, numbness, or weakness. <Fay Anderson PA-C - Last Filed: 05/06/22 14:32> All systems reviewed & are unremarkable except as noted in HPI and below <Fay Anderson PA-C - Last Filed: 05/06/22 14:32> [facility] Past Medical History Medical History: Medical History Atrial fibrillation CAD (coronary artery disease) COPD (chronic obstructive pulmonary disease) History of kidney stones History of prostate cancer 05/2016 Pacemaker Stomach ulcer <DOMINIC Pimentel Last Filed: 05/06/22 14:32> Surgical History Surgical History: Surgical History H/O resection of stomach History of bilateral carpal tunnel release (2013) Hx of inguinal hernia repair Laparoscopic bilateral inguinal hernia repair with mesh, da Denny assisted 09/22/2021 S/P colon resection S/P triple vessel bypass <Fay Anderson PA-C - Last Filed: 05/06/22 14:32> Family History Family History: Family History Father Cerebrovascular accident Heart disease Hypertension Mother Cancer Sibling Kidney failure Heart failure Other Colon polyp Depression Malignant neoplasm of prostate <DOMINIC Pimentel Last Filed: 05/06/22 14:32> Social History Social History: Social History Smoking packs per day: 0.5 Smoking cigarettes per day: 10.0 Years smoked: 60 Smoking pack-years: 30.00 Smoking status: Current every day smoker Tobacco type: cigarettes Alcohol intake: current Drinks per week: 14 Alcohol use details: BEER Substance use: never Substance use type: does not use Gender identity (if verbalized by the patient): Male Sexual Orientation (if Verbalized by the Patient): Straight or Heterosexual Spiritual care con
[2022-05-06] MEDS: ONDANSETRON INJ 4 MG/2 ML VIAL IV PUSH (10:36)
[2022-05-06] MEDS: MORPHINE SULFATE (*CRX) 4 MG/ML INJ IV PUSH (10:36)
[2022-05-06] MEDS: fentaNYL CITRATE INJ (*CRX) 100 MCG/2 ML VIAL 50 MCG IV PUSH (12:48)
--- NOTE | 2022-05-06 13:01 | PC.NURSE ---
20 mg [address] administered by Dr. Gabriel.
--- NOTE | 2022-05-06 13:03 | PC.NURSE ---
20 mg [address] administered by Dr. Gabriel.
== END 2022-05-06 14:50 | disposition home or self-care (01) ==
PROVIDERS: Emergency Provider Emergency Medicine; PCP Family Medicine Adolescent Medicine
DX: S43.015A Anterior dislocation of left humerus, initial encounter (principal); I48.91 Unspecified atrial fibrillation; I25.10 Atherosclerotic heart disease of native coronary artery without angina pectoris; J44.9 Chronic obstructive pulmonary disease, unspecified; F17.210 Nicotine dependence, cigarettes, uncomplicated; Z90.49 Acquired absence of other specified parts of digestive tract; Z95.1 Presence of aortocoronary bypass graft; Z95.0 Presence of cardiac pacemaker; Z85.46 Personal history of malignant neoplasm of prostate; Z87.442 Personal history of urinary calculi; M19.012 Primary osteoarthritis, left shoulder; I51.7 Cardiomegaly; W01.0XXA Fall on same level from slipping, tripping and stumbling without subsequent striking against object, initial encounter
CPT/HCPCS: 23650; 70450; 71046; 71100; 73020; 73030; 73060; 73080; 96374; 96375; 99285; J2270; J2405; J3010; J7030

== ENCOUNTER 2023-01-20 12:58 | Observation (INO) | payer MEDICARE, SELFPAY ==
[2023-01-20] VITALS (10 sets, daily range): BP systolic 142–179; BP diastolic 71–99; PULSE 75–99; RESP 18–23; TEMP 36.6–36.9; O2SAT 94–100; BMI 26.9
--- NOTE | ~2023-01-20 | XR_ITS ---
EXAMINATION: XR chest 2V DATE: 01/20/2023 14:04 INDICATION: Shortness of breath TECHNIQUE: PA and lateral views of the chest are obtained. COMPARISON: 05/06/2022 FINDINGS: There are small pleural effusions. There are minimal airspace opacities of the lung bases. No pneumothorax is identified. Cardiomegaly is noted. Median sternotomy wires and mediastinal surgica l clips are seen, likely from prior coronary artery bypass grafting. A dual-lead cardiac pacemaker of the left chest wall ends with leads in expected locations. Healed left-sided rib fractures are noted . IMPRESSION: 1. Small pleural effusions. 2. Bibasilar airspace opacities, consistent with atelectasis versus pneumonia versus pulmonary edema. 3. Cardiomegaly. Reviewed, dictated and finalized at location L. IMPRESSION: 1. Small pleural effusions. 2. Bibasilar airspace opacities, consistent with atelectasis versus pneumonia v ersus pulmonary edema. 3. Cardiomegaly.
--- NOTE | 2023-01-20 13:03 | ECG_ITS ---
Measurements Intervals [place] Rate: 86 P: [place]: 0 QRS: 28 QRSD: 154 T: -22 QT: 404 QTc: 486 Interpretive Statements ELECTRONIC VENTRICULAR PACEMAKER WITH INHIBITION RIGHT BUNDLE BRANCH BLOCK BASELINE ARTIFACT- I, II, III, AVR, AVL, AVF, V1, V4 NO FURTHER INTERPRETATION IS POSSIBLE ABNORMAL ECG COMPARED TO ECG 04/08/2022 12:01:11 RIGHT BUNDLE-BRANCH BLOCK NOW PRESENT Electronically Signed On 01-20-2023 15:06:28 CDT by Obi Shrestha D.O.
[2023-01-20 15:44] LABS: Basophils Percent Auto 0.5 % (0.2-1.2); Eosinophils Absolute Auto 0.1 K/mm3 (0-0.3); Eosinophils Percent Auto 0.6 % (0-4.4); Hematocrit 44.1 % (42.0-52.0); Hemoglobin 14.1 g/dL (14.0-18.0); Immature Granulocyte Absolute 0.04 K/mm3 (0.00-0.031); Immature Granulocyte Percent A 0.5 % (0-0.5); Immature Platelet Fraction Pct 5.4 % (0.9-11.2); Lymphocytes Absolute Auto 0.56 K/mm3 (0.9-3.2); Lymphocytes Percent Auto 7.1 % (18.3-44.2); Mean Corpuscular Hemoglobin 30.9 pg (26-34); Mean Corpuscular Volume 96.5 fl (80-100); Monocytes Absolute Auto 0.7 K/mm3 (0.1-0.6); Monocytes Percent Auto 9.4 % (2.6-8.5); Neutrophils Absolute Auto 6.5 K/mm3 (1.3-6.7); Neutrophils Percent Auto 81.9 % (45.5-73.1); Platelet Count Result 76 k/mm3 (150-375); Red Blood Count 4.57 M/mm3 (4.6-6.20); Red Cell Distribution Width 14.4 % (11.5-14.5); White Blood Count 7.9 K/mm3 (4.5-10.0)
--- NOTE | 2023-01-20 15:53 | ED.SOB ---
HPI - SOB/Dyspnea General Chief Complaint: Shortness of Breath/Dyspnea Stated Complaint: sob Time Seen by Provider: 01/20/23 15:21 History of Present Illness HPI Narrative: Patient is an 82-year-old male with a history of hypertension, COPD presenting with shortness of breath. Patient states that he has been feeling more short of breath over the last few weeks. States that it seems to get worse at night. States that sometimes he has to sit up to help it. Denies any leg swelling or chest pain or lightheadedness. States that he has had a more productive cough. He has been using his inhaler with temporary relief. He does still smoke socially. No fevers or chills, abdominal pain, vomiting, diarrhea. Related Data Home Medications Medication Instructions Recorded Confirmed aspirin 325 mg tablet 325 mg PO DAILY 07/23/21 01/20/23 mecobalamin (vitamin B12) 5,000 500 mcg PO HS 07/23/21 01/20/23 mcg lozenge tamsulosin 0.4 mg capsule 0.4 mg PO DAILY 07/23/21 01/20/23 Allergies Allergy/AdvReac Type Severity Reaction Status Date / Time latex Allergy Itching/HIV Verified 01/20/23 15:18 ES Penicillins AdvReac Unknown Unknown Verified 01/20/23 15:18 Review of Systems Review of Systems: All systems reviewed & are unremarkable except as noted in HPI and below PMFSH Past Medical History Medical History (Updated 01/23/23 @ 04:34 by Radha Hill MD) Atrial fibrillation CAD (coronary artery disease) COPD (chronic obstructive pulmonary disease) History of kidney stones History of prostate cancer 05/2016 Pacemaker Stomach ulcer Surgical History Surgical History H/O resection of stomach History of bilateral carpal tunnel release (2013) Hx of inguinal hernia repair Laparoscopic bilateral inguinal hernia repair with mesh, da Denny assisted 09/22/2021 S/P colon resection S/P triple vessel bypass Family History Family History Father Cerebrovascular accident Heart disease Hypertension Mother Cancer Sibling Kidney failure Heart failure Other Colon polyp Depression Malignant neoplasm of prostate Social History Social History Smoking packs per day: 0.5 Smoking cigarettes per day: 10.0 Years smoked: 67 Smoking pack-years: 33.50 Smoking status: Current every day smoker Tobacco type: cigarettes Alcohol intake: current Drinks per week: 14 Alcohol use details: BEER Substance use: never Substance use type: does not use Lack of Transportation: No Lack of Food: Never True Current Housing: I Have Housing Concerned About Future Housing: No Difficulty Paying Gas/Electric Bills: No Difficulty Paying for Meds: No Currently Unemployed: No Education: Decline to Answer Difficulty w/ Childcare or Family Care: No Living arrangements: alone Occupation/Education: retired Gender identity (if verbalized by the patient): Male Sexual Orientation (if Verbalized by the Patient): Straight or Heterosexual Spiritual care concerns: No Agree to blood products: Yes Exam Narrative: GENERAL: Well-appearing, no acute distress, pleasant and cooperative HEAD: Normocephalic, atraumatic. EYES: PERRLA and EOMI. ENT: Mucous membranes moist. NECK: Supple. CHEST: No respiratory distress. Wheezing bilaterally HEART: Regular rate and rhythm. ABDOMEN: Soft, nontender, nondistended EXTREMITIES: Normal range of motion. No edema. SKIN: Warm, dry, no rash. NEURO: No focal deficits. Alert and oriented x3. PSYCH: Normal mood and affect. Course Vital Signs Vital signs: Vital Signs Temperature 98.5 F 01/20/23 12:59 Pulse Rate 84 01/20/23 12:59 Respiratory Rate 18 01/20/23 12:59 Blood Pressure 154/71 H 01/20/23 12:59 Pulse Oximetry 100 01/20/23 12:59 Oxygen Delivery Room Air
[2023-01-20] MEDS: ALBUTEROL SULFATE NEB 2.5 MG/3 ML INH 10 MG INHALATION (16:12)
[2023-01-20] MEDS: IPRATROPIUM BR 0.02% INH SOLN 0.5 MG/2.5 ML VIAL INHALATION (16:12)
[2023-01-20] MEDS: methylPREDNISolone SOD SUCC 125 MG VIAL IV PUSH (16:23)
[2023-01-20 16:24] LABS: Alanine Aminotransferase 24 U/L (6-50); Albumin Level 3.9 g/dL (3.5-5.1); Alkaline Phosphatase 105 U/L (38-126); Anion Gap 5 mmol/L (8-16); Aspartate Amino Transferase 57 U/L (17-59); Bilirubin,Total 1.1 mg/dL (0.2-1.3); Blood Urea Nitrogen 12 mg/dL (9-20); Calcium 8.6 mg/dL (8.4-10.2); Carbon Dioxide 30 mmol/L (22-30); Chloride 103 mmol/L (98-107); Estimated CRCL calculation 56 ml/min; Estimated Glomerular Filt Rate > 60; Glucose 149 mg/dL (65-110); Potassium 3.6 mmol/L (3.4-5.0); Sodium 138 mmol/L (137-145)
[2023-01-20 16:40] LABS: NT Pro B Type Natriuretic Pept 5370 pg/mL (19.9-100)
[2023-01-20 16:50] LABS: Influenza A QL RT-PCR Negative (Negative); Influenza B QL RT-PCR Negative (Negative); RSV RNA, RT-PCR Negative (Negative); SARS-CoV-2 RNA PCR Negative (Negative)
--- NOTE | 2023-01-20 20:47 | ADMGEN ---
This patient, Justin Art, was admitted to IMU Room 210-01. Patient/family oriented to hospital policies and general routines including ID bracelet, bed and alarms, visiting hours, pain management, procedures, bathroom and other care routines, personal items, smoking policy, room service/diet, and visiting hours. Information on how to activate the Rapid Response Team has been discussed. Patient/Family are encouraged to report perceived risks to care and to ask questions if they do not understand what they are told or what they should do.
--- NOTE | 2023-01-20 23:55 | PM.IMHP ---
H&P: HPI History of Present Illness Date/Time: 01/20/23 23:55 Chief Complaint: SOB Narrative: 82 y/o M presents here with SOB with PMH of CAD, HTN, COPD, AFib, pacemaker, triple bypass graft, and prostate cancer. Patient presents to the ED earlier today with worsening shortness of breath over the last few weeks. SOB worse at night and has prevented patient from sleeping for the last 3 nights. patient reports some alleviation from symptoms with use of home albuterol inhaler, sitting upright in bed, and rest. Denies fever, URI symptoms, increased sputum production, chest pain, palpitations, nausea vomiting or diarrhea. No diaphoresis. Current smoker - social. Review of Systems Review of Systems: All systems reviewed & are unremarkable except as noted in HPI and below PMFSH Past Medical History Medical History Atrial fibrillation CAD (coronary artery disease) COPD (chronic obstructive pulmonary disease) History of kidney stones History of prostate cancer 05/2016 Pacemaker Stomach ulcer Surgical History Surgical History H/O resection of stomach History of bilateral carpal tunnel release (2013) Hx of inguinal hernia repair Laparoscopic bilateral inguinal hernia repair with mesh, da Denny assisted 09/22/2021 S/P colon resection S/P triple vessel bypass Family History Family History Father Cerebrovascular accident Heart disease Hypertension Mother Cancer Sibling Kidney failure Heart failure Other Colon polyp Depression Malignant neoplasm of prostate Social History Social History Smoking packs per day: 0.5 Smoking cigarettes per day: 10.0 Years smoked: 67 Smoking pack-years: 33.50 Smoking status: Current every day smoker Tobacco type: cigarettes Alcohol intake: current Drinks per week: 14 Alcohol use details: BEER Substance use: never Substance use type: does not use Lack of Transportation: No Lack of Food: Never True Current Housing: I Have Housing Concerned About Future Housing: No Difficulty Paying Gas/Electric Bills: No Difficulty Paying for Meds: No Currently Unemployed: No Education: Decline to Answer Difficulty w/ Childcare or Family Care: No Living arrangements: alone Occupation/Education: retired Gender identity (if verbalized by the patient): Male Sexual Orientation (if Verbalized by the Patient): Straight or Heterosexual Spiritual care concerns: No Agree to blood products: Yes Meds Home Medications and Allergies Home Medications Medication Instructions Recorded Confirmed Type aspirin 325 mg tablet 325 mg PO DAILY 07/23/21 01/20/23 History mecobalamin (vitamin B12) 5,000 500 mcg PO HS 07/23/21 01/20/23 History mcg lozenge tamsulosin 0.4 mg capsule 0.4 mg PO DAILY 07/23/21 01/20/23 History bupropion HCl 300 mg 24 hr tablet, 300 mg PO QAM #30 tabs 10/14/22 01/20/23 Rx extended release fluticasone 250 mcg-salmeterol 50 1 inh inhalation BID #60 ea 10/14/22 01/20/23 Rx mcg/dose blistr powdr for inhalation (Advair Diskus) telmisartan 40 mg tablet 40 mg PO DAILY #90 tabs 11/08/22 01/20/23 Rx albuterol sulfate 90 mcg/actuation 2 inh inhalation QID PRN shortness 11/29/22 01/20/23 Rx aerosol inhaler of breath or wheezing #8.5 grams Allergies Allergy/AdvReac Type Severity Reaction Status Date / Time latex Allergy Itching/HIV Verified 01/20/23 15:18 ES Penicillins AdvReac Unknown Unknown Verified 01/20/23 15:18 Vital Signs Vital Signs - 24 hr 01/20/23 12:59 01/20/23 15:05 01/20/23 15:37 Temperature 98.5 F 97.9 F Pulse Rate 84 92 Respiratory Rate 18 21 H Blood Pressure 154/71 H 142/78 H Pulse Oximetry 100 96 100 Oxygen Delivery Room Air Room Air 01/20/23 16:15
[2023-01-21] VITALS (22 sets, daily range): BP systolic 136–162; BP diastolic 72–85; PULSE 71–121; RESP 18–20; TEMP 36.1–36.4; O2SAT 96–100
--- NOTE | 2023-01-21 | ECHO_ITS ---
Patient Info Name: Justin Art Age: 82 years : 1940 Gender: Male Ht: 67 in Wt: 171 lbs BSA: 1.93 m2 HR: 61 bpm BP: 138 / 81 mmHg Heart Rhythm: Atrial Fibrillation, Paced Technical Quality: Fair Exam Date: 01/21/2023 10:02 AM Exam Location: [facility] Pulmonary Exam Room: 210 Patient Status: Inpatient Admit Date: 01/20/2023 Staff Ordering Physician: Betty Calero APRN Office Helper: Kelsi Hale RDCS Attending Provider: Clayton Ac MD Referring Physician: Abdias ACEVEDO; Exam Type: CA echo doppler color flow Study Info Indications - ppm cabg elvated bnp sob Complete two-dimensional, color flow and Doppler transthoracic echocardiogram is performed. Summary 1. Complete two-dimensional, color flow and Doppler transthoracic echocardiogram is performed. 2. Left ventricular enlargement with severely depressed systolic function ejection fraction 25-30%. 3. Severe biatrial dilation. 4. Pacemaker leads noted. 5. Paced rhythm intrinsic rhythm is atrial fibrillation. 6. Mild sclerosis of the aortic valve with small amount of AI. 7. Mild mitral and tricuspid insufficiency. 8. At least moderately elevated pulmonary artery pressure. Left Ventricle Left ventricular chamber dimension is moderately enlarged. Left ventricular systolic function is severely reduced, estimated at 25-30%. The left ventricular diastolic function is abnormal. Right Ventricle Right ventricular chamber dimension is normal. Linear artifact in right ventricle suggestive of catheter(s), pacemaker lead(s), or ICD lead(s). Left Atria Left atrial chamber dimension is severely enlarged. Right Atria Right atrial chamber dimension is severely enlarged. Linear artifact in the right atrium suggestive of catheter(s), pacemaker lead(s), or ICD lead(s). Aortic Valve The aortic valve is trileaflet. There is moderate aortic valve sclerosis. There is mild aortic valve stenosis with a peak velocity of 142 cm/s, mean gradient of 4 mmHg, and aortic valve area of 2.7 cm2. There is mild aortic valve regurgitation. Pulmonic Valve The pulmonic valve is normal. Mitral Valve The mitral valve has normal leaflets. There is mild mitral valve regurgitation. Tricuspid Valve The tricuspid valve leaflets are normal. There is mild tricuspid valve regurgitation. Moderate pulmonary hypertension, estimated pulmonary arterial systolic pressure is 65 mmHg. Pericardium/Pleural The pericardium appears normal. Aorta The aortic root size at the sinus of Valsalva is not well visualized. Left Ventricular Outflow Tract Name Value Normal LVOT 2D LVOT Diameter 2.1 cm LVOT Doppler LVOT Peak Gradient 4 mmHg LVOT Mean Gradient 2 mmHg LVOT VTI 18 cm LVOT VTI/AV VTI Ratio 0.8 LVOT Stroke Volume 60 ml LVOT CO 14.6 l/min LVOT CI 7.6 l/min/m2 Pulmonic Valve Name Value Normal
[2023-01-21 01:11] LABS: Hematocrit 41.7 % (42.0-52.0); Hemoglobin 13.6 g/dL (14.0-18.0); Immature Granulocyte Absolute 0.02 K/mm3 (0.00-0.031); Immature Granulocyte Percent A 0.3 % (0-0.5); Immature Platelet Fraction Pct 5.8 % (0.9-11.2); Lymphocytes Absolute Auto 0.13 K/mm3 (0.9-3.2); Lymphocytes Percent Auto 2.2 % (18.3-44.2); Mean Corpuscular HGB Conc 32.6 g/dl (32-36); Mean Corpuscular Hemoglobin 31.2 pg (26-34); Mean Corpuscular Volume 95.6 fl (80-100); Mean Platelet Volume 10.8 fl (7.4-10.4); Monocytes Absolute Auto 0.1 K/mm3 (0.1-0.6); Monocytes Percent Auto 1.2 % (2.6-8.5); Neutrophils Absolute Auto 5.6 K/mm3 (1.3-6.7); Neutrophils Percent Auto 96.3 % (45.5-73.1); Platelet Count Result 136 k/mm3 (150-375); Red Blood Count 4.36 M/mm3 (4.6-6.20); Red Cell Distribution Width 14.2 % (11.5-14.5); White Blood Count 5.8 K/mm3 (4.5-10.0)
[2023-01-21 01:19] LABS: Hemoglobin A1C 5.6 % (<5.7)
[2023-01-21 01:22] LABS: Partial Thromboplastin Time 30.8 SECONDS (22.3-36.8)
[2023-01-21] MEDS: HEPARIN SOD/D5W 100 UNITS/ML 25,000 UNITS/250 ML BAG 9 UNITS IV CONT (02:54)
[2023-01-21] MEDS: ALBUTEROL SULFATE NEB 2.5 MG/3 ML INH INHALATION ×3 (08:25→21:38)
[2023-01-21] MEDS: IPRATROPIUM BR 0.02% INH SOLN 0.5 MG/2.5 ML VIAL INHALATION ×3 (08:25→21:38)
[2023-01-21 08:26] LABS: Partial Thromboplastin Time 41.9 SECONDS (22.3-36.8)
[2023-01-21 08:28] LABS: Anion Gap 7 mmol/L (8-16); Blood Urea Nitrogen 13 mg/dL (9-20); Calcium 8.9 mg/dL (8.4-10.2); Carbon Dioxide 26 mmol/L (22-30); Chloride 105 mmol/L (98-107); Estimated CRCL calculation 68 ml/min; Estimated Glomerular Filt Rate > 60; Glucose 162 mg/dL (65-110); Potassium 4.1 mmol/L (3.4-5.0); Sodium 138 mmol/L (137-145)
--- NOTE | 2023-01-21 08:33 | PM.IMPN ---
Progress Note: A&P Assessment and Plan (1) SOB (shortness of breath): Code(s): R06.02 - Shortness of breath Status: Acute Assessment and Plan: albuterol and atrovent nebulizers Q6HRT. home inhalers continued: albuterol, advair Solu-Medrol 125 mg, 1 time dose given in ED elevated BNP: currently 5370, 2330 on 04/26/22 viral PCR negative for influenza A, influenza B, COVID, RSV echo pending (2) Elevated troponin: Code(s): R77.8 - Other specified abnormalities of plasma proteins Status: Acute Assessment and Plan: trop x3: 0.028 -> 5.960 -> 5.180. cardiac monitoring consult cardiology - Recommended initiating heparin drip and ordering echo. (3) Thrombocytopenia: Code(s): D69.6 - Thrombocytopenia, unspecified Status: Acute Assessment and Plan: platelets improved from 75 to 136, monitor (4) Hypertension: Code(s): I10 - Essential (primary) hypertension Status: Acute Assessment and Plan: continue home telmisartan 40 mg Blood pressures reviewed 01/21 Plan Chronic Conditions - supplements: continue home B12 - home bupropion and tamsulosin continued - elevated glucose: A1C 5.6 Diet: NPO GI Prophylaxis: not currently indicated DVT Prophylaxis: SCDs, heparin gtt started Lines: pIV Code Status: DNR Subjective Date/time seen: 01/21/23 08:33 Interval history: 82 y/o M presents here with SOB with PMH of CAD, HTN, COPD, AFib, pacemaker, triple bypass graft, and prostate cancer. No overnight events noted. No chest pain or shortness of breath. No nausea, vomiting or diarrhea. No fevers or chills. Review of Systems Review of Systems: 12 point review of systems was assessed and was negative except as noted in the HPI Exam Narrative: General: No acute distress, alert and oriented per baseline HEENT: Atraumatic, normocephalic, mucous membranes moist CV: Irregularly irregular, S1, S2 Lungs: Clear to auscultation bilaterally, no rales or crackles noted, no wheezes, good air entry Abdomen: Soft, nontender, nondistended Extremities: Normal to inspection Skin: No rashes noted, no lesions or wounds seen Psych: Euthymic, normal affect Objective Data Vital Signs Vital Signs: Vital Signs - 24 hr 01/20/23 12:59 01/20/23 15:05 01/20/23 15:37 Temperature 98.5 F 97.9 F Pulse Rate 84 92 Respiratory Rate 18 21 H Blood Pressure 154/71 H 142/78 H Pulse Oximetry 100 96 100 Oxygen Delivery Room Air Room Air 01/20/23 16:15 01/20/23 16:59 01/20/23 17:19 Temperature Pulse Rate 99 82 99 Respiratory Rate 23 H 19 21 H Blood Pressure 156/84 H Pulse Oximetry 100 Oxygen Delivery 01/20/23 19:00 01/20/23 20:35 01/20/23 22:00 Temperature 97.8 F Pulse Rate 75 86 75 Respiratory Rate 22 H 18 Blood Pressure 167/99 H 179/72 H Pulse Oximetry 94 96 Oxygen Delivery 01/20/23 23:26 01/21/23 00:00 01/21/23 00:00 Temperature 97.8 F Pulse Rate 90 90 73 Respiratory Rate 20 20 Blood Pressure 153/74 H Pulse Oximetry 99 99 Oxygen Delivery Room Air 01/21/23 02:00 01/21/23 04:00 01/21/23 04:00 Temperature Pulse Rate 72 73 72 Respiratory Rate 20 Blood Pressure Pulse Oximetry 99 Oxygen Delivery Room Air 01/21/23 04:00 01/21/23 06:00 01/21/23 08:23 Temperature 97.3 F L 97.1 F L Pulse Rate 121 H 72 71 Respiratory Rate 20 20 Blood Pressure 138/81 139/85 Pulse Oximetry 100 97 Oxygen Delivery 01/21/23 08:30 Temperature Pulse Rate 71 Respiratory Rate Blood Pressure Pulse Oximetry 97 Oxygen Delivery Room Air Meds/Results Medications: Active Medications Generic Name Dose Route Start Last Admin Trade Name Freq PRN Reason Stop Dose Admin Albuterol 2.5 mg 01/20/23 20:00 01/21/23 08:25 Albuterol Sulfate Neb 2.5 Mg/3 Ml Inh INHALATION 2.5 mg Q6HRT MIKE Administration Albuterol 2 puff 01/21/23 00:14 Albuterol Sulfate (*Sp)
[2023-01-21] MEDS: HEPARIN SODIUM 5,000 UNITS/ML VIAL 4000 UNITS IV PUSH (09:28)
[2023-01-21] MEDS: TAMSULOSIN HCL 0.4 MG CAPSULE PO (09:32)
[2023-01-21] MEDS: ASPIRIN 325 MG TABLET PO (09:32)
[2023-01-21] MEDS: TELMISARTAN 40 MG TABLET PO (09:32)
[2023-01-21] MEDS: buPROPion HCL XL (24 HR) 150 MG TABCR 300 MG PO (09:32)
--- NOTE | 2023-01-21 11:52 | PM.CNCAR ---
Assessment and Plan Assessment and plan (1) Elevated troponin: Code(s): R77.8 - Other specified abnormalities of plasma proteins Status: Acute (2) SOB (shortness of breath): Code(s): R06.02 - Shortness of breath Status: Acute Plan This is an 82-year-old man who is known to have multivessel coronary disease who underwent surgical revascularization with and repair of his aortic root in 2012. He also has chronic atrial fibrillation and implantation of a dual-chamber pacing device back when he had sinus rhythm about a decade ago. He now enters the hospital with symptomatic congestive heart failure he has poor LV systolic function on echo and troponin suggests that her recent infarction has occurred. He does recall having any recent chest pain event. He desires and I would recommend a conservative approach to his case at this point. I am going to transition his ARB to Entresto, start modest dose of carvedilol and spironolactone. We will follow his case with you while he is in the hospital. I will inform the patient that his echocardiogram as I suspected demonstrates that his left ventricular systolic function has become rather poor, likely related to a recent infarction. He does not wish to have any aggressive procedures and has elected DNR status on his chart Red Gao MD [facility] History of Present Illness History of Present Illness Consult date/time: 01/21/23 11:52 Reason For Visit: elevated troponin Narrative: This is a very pleasant 82-year-old man I am seeing at the request of the hospitalist because of elevation of troponin level. The patient came to the hospital yesterday with shortness of breath that has been gradually coming on for the last month or so he says. The patient is known to me with history of coronary artery disease, chronically implanted pacemaker and chronic atrial fibrillation. He was last seen in my office in October of this year and according to my note did not have any of these complaints at that time. He is not having any accumulating edema or chest pain he says that his shortness of breath with modest activity has become more noticeable in recent weeks. A probe out 3 days before coming in the hospital he notices difficulty sleeping flat in bed because of dyspnea. Following admission to the hospital his evaluation she included sample his troponin levels which are moderately elevated in the 4-5 range but are not rising or falling. His electrocardiogram shows atrial fib with a right bundle branch block and occasional pay electronic pacing. He feels comfortable at this time and denies any complaints. Because of his advanced age he has elected to do not resuscitate status on his medical record. He has a history of ischemic heart disease with multivessel disease being treated with bypass grafting back in 2012. He shortly after that had a dual-chamber Biotronik pacemaker device implanted because of symptomatic sick sinus syndrome. 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 He offers no other significant complaints. His evaluation in the emergency room also showed evidence of cardiomegaly and some bibasilar congestion in his lungs. His home medical regimen at this time includes aspirin, albuterol inhaler, tamsulosin and telmisartan. An echocardiogram done this morning demonstrates significant LV dysfunction with LV enlargement and a ejection fraction reduced to the range of 25-30%. He has severe biatrial dilation and mild mitral and tricuspid regurgitation. TR velocities indicate that pulmonary artery pressures are significantly elevated. Review of Systems Constitutional: Constitutional: Reports difficulty sleeping and Reports lethargy Eyes: Eyes: Reports no additional eye complaints ENT: Reports system reviewed and no additional complaints, except as documented Cardiovascular: Cardiovascular: Reports as per HPI Respirator
[2023-01-21] MEDS: HEPARIN SODIUM 5,000 UNITS/ML VIAL 3000 UNITS IV PUSH (17:59)
[2023-01-21] MEDS: carvediloL 3.125 MG TABLET PO (20:07)
[2023-01-21] MEDS: CYANOCOBALAMIN 500 MCG TABLET PO (20:08)
[2023-01-21] MEDS: SACUBITRIL/VALSARTAN 24-26 MG TABLET 1 TAB PO (20:08)
[2023-01-22] VITALS (25 sets, daily range): BP systolic 128–155; BP diastolic 71–94; PULSE 70–99; RESP 18–22; TEMP 35.8–36.5; O2SAT 94–99
[2023-01-22] MEDS: HEPARIN SOD/D5W 100 UNITS/ML 25,000 UNITS/250 ML BAG 14 UNITS IV CONT (00:30)
[2023-01-22 00:59] LABS: Partial Thromboplastin Time 96.8 SECONDS (22.3-36.8)
[2023-01-22] MEDS: ALBUTEROL SULFATE NEB 2.5 MG/3 ML INH INHALATION ×4 (03:07→18:06)
[2023-01-22] MEDS: IPRATROPIUM BR 0.02% INH SOLN 0.5 MG/2.5 ML VIAL INHALATION ×4 (03:07→18:05)
[2023-01-22 06:38] LABS: Basophils Absolute Auto 0.1 K/mm3 (0.0-0.1); Basophils Percent Auto 0.5 % (0.2-1.2); Eosinophils Absolute Auto 0.1 K/mm3 (0-0.3); Eosinophils Percent Auto 0.5 % (0-4.4); Hemoglobin 14.4 g/dL (14.0-18.0); Immature Granulocyte Absolute 0.03 K/mm3 (0.00-0.031); Immature Granulocyte Percent A 0.3 % (0-0.5); Lymphocytes Absolute Auto 0.53 K/mm3 (0.9-3.2); Lymphocytes Percent Auto 5.5 % (18.3-44.2); Mean Corpuscular Hemoglobin 30.6 pg (26-34); Mean Corpuscular Volume 95.7 fl (80-100); Mean Platelet Volume 10.3 fl (7.4-10.4); Monocytes Absolute Auto 0.9 K/mm3 (0.1-0.6); Monocytes Percent Auto 9.2 % (2.6-8.5); Platelet Count Result 148 k/mm3 (150-375); Red Cell Distribution Width 14.3 % (11.5-14.5); White Blood Count 9.6 K/mm3 (4.5-10.0)
[2023-01-22 06:49] LABS: Partial Thromboplastin Time 74.4 SECONDS (22.3-36.8)
[2023-01-22] MEDS: TAMSULOSIN HCL 0.4 MG CAPSULE PO (08:02)
[2023-01-22] MEDS: SPIRONOLACTONE 25 MG TABLET PO (08:02)
[2023-01-22] MEDS: SACUBITRIL/VALSARTAN 24-26 MG TABLET 1 TAB PO ×2 (08:02→18:55)
[2023-01-22] MEDS: ASPIRIN 325 MG TABLET PO (08:02)
[2023-01-22] MEDS: buPROPion HCL XL (24 HR) 150 MG TABCR 300 MG PO (08:02)
[2023-01-22] MEDS: carvediloL 3.125 MG TABLET PO ×2 (08:03→18:55)
[2023-01-22] MEDS: FLUTICASONE PROPIONATE 0.05% NA SPR 16 GM BTL (*BKC) 1 SPRAY NASAL (08:04)
--- NOTE | 2023-01-22 14:43 | PM.PNCARD ---
Progress Note: A&P Assessment and Plan (1) NSTEMI (non-ST elevated myocardial infarction): Code(s): I21.4 - Non-ST elevation (NSTEMI) myocardial infarction Status: Acute Assessment and Plan: Patient asymptomatic, downward trending troponin. No recurrent chest pain or shortness of breath. Aggressive medical management. Patient is DNR and does not wish to engage in any other further tests or invasive management including coronary angiogram. Continue aspirin at least 81 mg daily. He is not currently on statin. Add atorvastatin 40 mg at bedtime. Check lipid panel. Continue carvedilol. Ideally, would add clopidogrel 75 mg daily, however, given his severe thrombocytopenia presentation this is problematic at this time. Although this is improving I would recheck as an outpatient in next 1 week. (2) CAD (coronary artery disease): Code(s): I25.10 - Atherosclerotic heart disease of [place] coronary artery without angina pectoris Status: Acute Assessment and Plan: As above, conservative management. Aggressive medical therapy. Continue carvedilol, initiated atorvastatin, aspirin 81 mg daily, lifestyle modifications. Outpatient cardiac rehab referral. Follow-up with Dr. Gonzáles in the office in 2 weeks. (3) Ischemic cardiomyopathy: Code(s): I25.5 - Ischemic cardiomyopathy Status: Acute Assessment and Plan: Severe LV systolic dysfunction EF 25-30% conservative medical management. Continue carvedilol 3.125 mg daily, Entresto 24/26 mg twice daily, spironolactone 25 mg daily. May also consider addition of Farxiga or Jardiance. He is not currently on diuretic therapy but appears to be relatively euvolemic at this time. (4) Hypertension: Qualifiers: Hypertension type: primary hypertension Qualified Code(s): I10 - Essential (primary) hypertension Code(s): I10 - Essential (primary) hypertension Status: Acute Assessment and Plan: Stable. Avoid excessive hypotension. Continue carvedilol 3.125 mg twice daily, spironolactone 25 mg daily, Entresto 24/26 mg daily. Ambulate with caution to avoid pressure falls and injuries. Check BMP prior to discharge. (5) Thrombocytopenia: Code(s): D69.6 - Thrombocytopenia, unspecified Status: Acute Assessment and Plan: Severe initially at 76 improving to 148 today. No evidence for bleeding. As above, antiplatelet therapy needs to be monitored. I would check CBC in 1-2 weeks as an outpatient. Hold off on addition of a 2nd antiplatelet agent such as clopidogrel at this time as result to minimize bleeding risk. (6) Pacemaker: Onset Date: 2012 Code(s): Z95.0 - Presence of cardiac pacemaker Status: Acute Assessment and Plan: Outpatient follow-up. Subjective Date/time seen: Date of service: 01/22/23 14:43 Interval history: Follow-up for cardiomyopathy, NSTEMI States he is feeling fairly well. Denies significant shortness of breast so far today. Denies chest pain. Dizziness. Lying flat in bed. Tolerating medications thus far. Denies bleeding. Would like to go home soon. Review of Systems Review of Systems: Remainder of the review of systems is otherwise negative aside from that noted in the HPI. All systems reviewed & are unremarkable except as noted in HPI and below Constitutional: Constitutional: Reports as per HPI and Reports no additional constitutional complaints Eyes: Eyes: Reports as per HPI and Reports no additional eye complaints ENT: Reports system reviewed and no additional complaints, except as documented and Reports as per HPI Cardiovascular: Cardiovascular: Reports as per HPI and Reports no additional cardiovascular complaints Respiratory: Respiratory: Reports as per HPI and Reports no additional respiratory complaints Gastrointestinal: Gastrointestinal: Reports as per HPI and Reports no additional gastrointestinal complaints Genitourinary: Gen
--- NOTE | 2023-01-22 17:50 | PM.DS ---
DS: Admitting Diagnosis Discharge Date 01/22/23 Admitting Diagnosis chest pain DS: Discharge Diagnosis Discharge Diagnosis (1) SOB (shortness of breath): Code(s): R06.02 - Shortness of breath Status: Acute Assessment and Plan: albuterol and atrovent nebulizers Q6HRT. home inhalers continued: albuterol, advair Solu-Medrol 125 mg, 1 time dose given in ED elevated BNP: currently 5370, 2330 on 04/26/22 viral PCR negative for influenza A, influenza B, COVID, RSV echo pending (2) Elevated troponin: Code(s): R77.8 - Other specified abnormalities of plasma proteins Status: Acute Assessment and Plan: trop x3: 0.028 -> 5.960 -> 5.180. cardiac monitoring consult cardiology - Recommended initiating heparin drip and ordering echo. (3) Thrombocytopenia: Code(s): D69.6 - Thrombocytopenia, unspecified Status: Acute Assessment and Plan: platelets improved from 75 to 136, monitor (4) Hypertension: Qualifiers: Hypertension type: primary hypertension Qualified Code(s): I10 - Essential (primary) hypertension Code(s): I10 - Essential (primary) hypertension Status: Acute Assessment and Plan: continue home telmisartan 40 mg Blood pressures reviewed 01/21 Plan Chronic Conditions - supplements: continue home B12 - home bupropion and tamsulosin continued - elevated glucose: A1C 5.6 Diet: NPO GI Prophylaxis: not currently indicated DVT Prophylaxis: SCDs, heparin gtt started Lines: pIV Code Status: DNR DS: Summary Hospital Course Hospital Course: 82 y/o M presents here with SOB with PMH of CAD, HTN, COPD, AFib, pacemaker, triple bypass graft, and prostate cancer. albuterol and atrovent nebulizers Q6HRT. home inhalers continued: albuterol, advair Solu-Medrol 125 mg, 1 time dose given in ED elevated BNP: currently 5370, 2330 on 04/26/22 viral PCR negative for influenza A, influenza B, COVID, RSV Patient asymptomatic, downward trending troponin.? No recurrent chest pain or shortness of breath.? Aggressive medical management.? Patient is DNR and does not wish to engage in any other further tests or invasive management including coronary angiogram.? Continue aspirin at least 81 mg daily.? He is not currently on statin.? Add atorvastatin 40 mg at bedtime.? Check lipid panel.? Continue carvedilol.? Ideally, would add clopidogrel 75 mg daily, however, given his severe thrombocytopenia presentation this is problematic at this time.? Although this is improving I would recheck as an outpatient in next 1 week. Severe LV systolic dysfunction EF 25-30% conservative medical management.? Continue carvedilol 3.125 mg daily, Entresto 24/26 mg twice daily, spironolactone 25 mg daily.? May also consider addition of Farxiga or Jardiance.? He is not currently on diuretic therapy but appears to be relatively euvolemic at this time. Thrombocytopenia severe initially at 76 improving to 148 today.? No evidence for bleeding.? As above, antiplatelet therapy needs to be monitored.? I would check CBC in 1-2 weeks as an outpatient.? Hold off on addition of a 2nd antiplatelet agent such as clopidogrel at this time as result to minimize bleeding risk. Please see above and med rec for details. Time Spent with Patient Time attestation: Total time spent providing and/or coordinating discharge services: Exam Narrative: General: No acute distress, alert and oriented per baseline HEENT: Atraumatic, normocephalic, mucous membranes moist CV: Irregularly irregular, S1, S2 Lungs: Clear to auscultation bilaterally, no rales or crackles noted, no wheezes, good air entry Abdomen: Soft, nontender, nondistended Extremities: Normal to inspection Skin: No rashes noted, no lesions or wounds seen Psych: Euthymic, normal affect DS: Data Data Completed and Pending Labs on day of discharge: Labs from last 24 hours 01/22/23 01/22/23 06:32 00:35 WBC 9.6
== END 2023-01-22 19:20 | disposition home or self-care (01) ==
LOC: ANHED 15:56 → ANHIMU 20:29
PROVIDERS: Family Medicine; Internal Medicine Cardiovascular Disease; Student in an Organized Health Care Education/Training Program; Admitting Provider Internal Medicine; Emergency Provider Emergency Medicine; PCP Family Medicine Adolescent Medicine; Visit Provider Student in an Organized Health Care Education/Training Program
DX: I21.4 Non-ST elevation (NSTEMI) myocardial infarction (principal); R77.8 Other specified abnormalities of plasma proteins; D69.6 Thrombocytopenia, unspecified; I25.5 Ischemic cardiomyopathy; I10 Essential (primary) hypertension; J44.9 Chronic obstructive pulmonary disease, unspecified; I48.91 Unspecified atrial fibrillation; I25.10 Atherosclerotic heart disease of native coronary artery without angina pectoris; Z85.46 Personal history of malignant neoplasm of prostate; Z95.0 Presence of cardiac pacemaker; F17.210 Nicotine dependence, cigarettes, uncomplicated; Z20.822 Contact with and (suspected) exposure to COVID-19
CPT/HCPCS: 36415; 71046; 80048; 80053; 83036; 83880; 84484; 85025; 85055; 85610; 85730; 87637; 93005; 93306; 94640; 96374; 99285; A9270; G0378; J1644; J2930

== ENCOUNTER 2023-06-23 21:40 | Observation (INO) | payer MEDICARE, SELFPAY ==
--- NOTE | ~2023-06-23 | CT_ITS ---
Non-contrast CT scan of the Abdomen and Pelvis Clinical indication: Hematuria Technique: 2.5 mm axial scans were obtained through the abdomen and pelvis without intravenous or or al contrast. Dose reduction technique was used on this scan by utilizing automated exposure control a nd iterative reconstruction technique. The dose-length product (DLP) was 624.08 mGy-cm. COMPARISON: 06/23/2023 Findings: Images through the lung bases reveal probable chronic atelectatic changes at the left lung base. There is no evidence of renal or ureteral calculi. The kidneys and the ureters are nondilated. The liver, spleen, pancreas, and adrenals appear normal. Gallbladder is distended with multiple galls tones but no gallbladder wall thickening. There are atherosclerotic calcifications of the aorta. There is no evidence of bowel obstruction. Images through the pelvis were performed. There is no evidence of ascites or lymphadenopathy. Prostat e gland is enlarged. There is irregular filling defects in the dependent urinary bladder which could reflect blood clot/blood products. Stable sclerotic lesion at the left T11 transverse process Stable L2 compression fracture. Impression: Irregular filling defects in the dependent urinary bladder are compatible with blood clot/blood produ cts. Etiology is unclear. Cholelithiasis. Stable sclerotic lesion in the left T11 transverse process which could reflect metastatic disease. Stable L2 compression fracture. Reviewed, dictated and finalized at [facility]. PTION MANAGER Impression: Irregular filling defects in the dependent urinary bladder are compatible with blood clot/blood products. Etiology is unclear. Cholelithiasis. Stable sclerotic lesion in the left T11 transverse process which could reflect metastatic disease. Stable L2 compression fracture.
--- NOTE | ~2023-06-23 | CT_ITS ---
EXAMINATION: CT abdomen pelvis wo/w con DATE: 06/23/2023 23:30 INDICATION: Gross hematuria. TECHNIQUE: Computed tomography (CT) of the abdomen and pelvis was performed without and with intraven ous contrast using a total of 130 mL Omnipaque-350 intravenous contrast with a double-bolus technique for simultaneous opacification of the renal parenchyma and renal collecting system. Automated exposu re control and iterative reconstruction technique were employed. The dose-length product was 1144.23 mGy-cm. COMPARISON: CT abdomen and pelvis 07/16/2021 FINDINGS: The visualized portions of the lung bases demonstrate mild atelectasis. There is mucous plugging in l eft lower lobe. No pleural effusion. Calcified right hilar lymph nodes are consistent with old granul omatous disease. Cardiomegaly is noted. There are coronary artery calcifications. There are calcifica tions of aortic valve. There are pacer wires in right atrium and right ventricle. No pericardial effu nitish. Left hepatic lobe is small. Calcifications in the liver and spleen are consistent with old gran ulomatous disease. There are gallstones in the gallbladder, which is normal in size. The pancreas and adrenal glands are normal. There is cortical thinning of the kidneys. There are cysts in the kidneys measuring up to 15 mm on the left. There is no urolithiasis. Right ureter is not well-opacified dist ally, but is normal. Left ureter is normal. There is calcified atherosclerosis of the aorta and many of the other arteries. There are bilateral inguinal hernias containing fat. The prostate is moderatel y enlarged. There are brachytherapy seeds in the prostate. There is diverticulosis of the colon witho ut evidence of diverticulitis. There are no dilated loops of bowel. The appendix is not visualized. T here are no pathologically enlarged lymph nodes. There is no free intraperitoneal fluid. There are ol d healed left rib fractures. There is moderate thoracic spondylosis and severe lumbar spondylosis. Th ere is mild chronic height loss of multiple vertebral bodies. There is sclerosis in left T11 transver se process. There is a sclerotic lesion in left sixth rib. IMPRESSION: 1. Sclerotic lesions in left sixth rib and left T11 transverse process, consistent with metastatic di sease. 2. Moderately enlarged prostate with brachytherapy seeds. Reviewed, dictated and finalized at location E. O ATTENDANT IMPRESSION: 1. Sclerotic lesions in left sixth rib and left T11 transverse process, consist ent with metastatic disease. 2. Moderately enlarged prostate with brachytherapy seeds.
--- NOTE | ~2023-06-23 | CT_ITS ---
EXAMINATION: CT diagnostic chest wo con DATE: 06/24/2023 10:17 INDICATION: Lesion LT 6th rib T11 tranverse TECHNIQUE: Computed tomography (CT) of the chest was performed without intravenous contrast. Addition al 3D reconstructions utilizing coronal maximum intensity projection (MIP) were performed. Automated exposure control and iterative reconstruction technique were employed. The dose-length product was 24 8.19 mGy-cm. COMPARISON: None FINDINGS: Mild emphysema. Scattered bilateral calcified pulmonary nodules along with calcified right hilar lymp h nodes and a few hepatic and multiple splenic calcifications consistent with old granulomatous disea se. 3-4 mm noncalcified right upper lobe nodule. Bandlike discoid atelectasis/scarring at the bilater al lower lobes with pleural thickening and region of adjacent round atelectasis at the posterior left lower lobe. No pneumonia, pulmonary edema, pleural effusion or pneumothorax. There are some bubbly m ucus in the distal trachea and left mainstem bronchus. Cardiomegaly. Atherosclerotic coronary artery calcifications. Venous anatomy and coronary artery bypass grafting. Dual lead pacemaker seen with tonya d tips at the right atrial appendage and at the apex of the right ventricle. Aortic valve calcificati ons. No pathologically enlarged thoracic lymphadenopathy. Postoperative change of prior gastric bypas s procedure. There are multiple calcific gallstones in the dependent aspect of the gallbladder which is dilated to 5.4 similar but without evident wall thickening or pericholecystic inflammatory strandi ng to more specifically suggest acute cholecystitis. There is some residual excreted contrast in the bilateral kidneys likely related to the contrast enhanced CT from 11 hours prior. Moderate thoracic s pondylosis with chronic mild anterior wedging of a few mid and lower thoracic vertebral bodies. Multi ple old healed left-sided rib fractures. There is a sclerotic lesion in the left sixth rib and at the left transverse process of T11. IMPRESSION: 1. Single 3-4 mm indeterminate pulmonary nodule in the right upper lobe most likely to represent a no ncalcified granuloma. No other lesions suspicious for primary malignancy or other suspicious pulmonar y nodules to elevate suspicion for pulmonary metastatic disease. 2. Mild emphysema. 3. Cardiomegaly. 4. Cholelithiasis. 5. Redemonstration of sclerotic lesions at the left sixth rib and left transverse process of T11 susp icious for metastatic prostate cancer in this patient with reported known prostate cancer. Orally wit h PSA level and could consider further evaluation with either bone scan or PSMA PET. Reviewed, dictated and finalized at location A. LATHE PROGRAMMER IMPRESSION: 1. Single 3-4 mm indeterminate pulmonary nodule in the right upper lobe most li marika to represent a noncalcified granuloma. No other lesions suspicious for judy irena malignancy or other suspicious pulmonary nodules to elevate suspicion for pulmonary metastatic disease. 2. Mild emphysema. 3. Cardiomegaly. 4. Cholelithiasis. 5. Redemonstration of sclerotic lesions at the left sixth rib and left transver se process of T11 suspicious for metastatic prostate cancer in this patient wit h reported known prostate cancer. Orally with PSA level and could consider furt her evaluation with either bone scan or PSMA PET.
[2023-06-23 21:40] VITALS: BP 109/89; PULSE 80; RESP 26; TEMP 36.9; O2SAT 98
[2023-06-23 22:12] LABS: Basophils Absolute Auto 0.1 K/mm3 (0.0-0.1); Eosinophils Absolute Auto 0.2 K/mm3 (0-0.3); Eosinophils Percent Auto 3.4 % (0-4.4); Hematocrit 44.2 % (42.0-52.0); Hemoglobin 14.5 g/dL (14.0-18.0); Immature Granulocyte Absolute 0.03 K/mm3 (0.00-0.031); Immature Granulocyte Percent A 0.5 % (0-0.5); Lymphocytes Absolute Auto 0.87 K/mm3 (0.9-3.2); Mean Corpuscular HGB Conc 32.8 g/dl (32-36); Mean Corpuscular Hemoglobin 31.7 pg (26-34); Mean Corpuscular Volume 96.7 fl (80-100); Mean Platelet Volume 10.2 fl (7.4-10.4); Monocytes Absolute Auto 0.7 K/mm3 (0.1-0.6); Monocytes Percent Auto 12.4 % (2.6-8.5); Neutrophils Absolute Auto 3.9 K/mm3 (1.3-6.7); Neutrophils Percent Auto 67.7 % (45.5-73.1); Platelet Count Result 183 k/mm3 (150-375); Red Blood Count 4.57 M/mm3 (4.6-6.20); Red Cell Distribution Width 14.1 % (11.5-14.5); White Blood Count 5.8 K/mm3 (4.5-10.0)
[2023-06-23 22:23] LABS: Prothrombin Time 14.1 Seconds (11.1-14.7)
[2023-06-23 22:24] LABS: Partial Thromboplastin Time 28.5 SECONDS (22.3-36.8)
[2023-06-23 22:30] LABS: Alanine Aminotransferase 27 U/L (6-50); Albumin Level 3.9 g/dL (3.5-5.1); Alkaline Phosphatase 137 U/L (38-126); Anion Gap 6 mmol/L (8-16); Aspartate Amino Transferase 33 U/L (17-59); Bilirubin,Total 0.4 mg/dL (0.2-1.3); Blood Urea Nitrogen 20 mg/dL (9-20); Carbon Dioxide 23 mmol/L (22-30); Chloride 111 mmol/L (98-107); Estimated CRCL calculation 59 ml/min; Estimated Glomerular Filt Rate > 60; Glucose 129 mg/dL (65-110); Potassium 4.1 mmol/L (3.4-5.0); Sodium 140 mmol/L (137-145)
--- NOTE | 2023-06-23 22:45 | ED.MALEGU ---
HPI - Male Genitourinary General Chief complaint: Urogenital-Male <DOMINIC Abebe Last Filed: 06/24/23 02:36> Stated complaint: HEMATURIA <DOMINIC Abeeb Last Filed: 06/24/23 02:36> Time Seen by Provider: 06/23/23 21:44 <DOMINIC Abebe Last Filed: 06/24/23 02:36> Source: patient <DOMINIC Abebe Last Filed: 06/24/23 02:36> Mode of arrival: EMS <DOMINIC Abebe Last Filed: 06/24/23 02:36> Limitations: no limitations <DOMINIC Abebe Last Filed: 06/24/23 02:36> History of Present Illness HPI Narrative: Patient is an 83-year-old male, with past medical history of prostate cancer status post radiation therapy, who presents to the ED via EMS with report of hematuria. Patient reports he has had intermittent hematuria in the past, but has not had any episodes in the last couple of months. He developed red tinged urine this morning and bleeding increased throughout the day, noted several clots in his urine. States it does burn when he urinates. He feels as though he is able to empty his bladder still. Denies abdominal or back pain. Denies fevers, N/V. Has previously seen Dr. Holman. <DOMINIC Abebe Last Filed: 06/24/23 02:36> Related Data Home medications: Home Medications Medication Instructions Recorded Confirmed aspirin 325 mg tablet 325 mg PO DAILY 07/23/21 06/24/23 mecobalamin (vitamin B12) 5,000 500 mcg PO HS 07/23/21 06/24/23 mcg lozenge sacubitril 24 mg-valsartan 26 mg 1 tablet PO BID 06/24/23 06/24/23 tablet (Entresto) <DOMINIC Abebe Last Filed: 06/24/23 02:36> Allergies/Adverse reactions: Allergies Allergy/AdvReac Type Severity Reaction Status Date / Time latex Allergy Itching/HIV Verified 03/17/23 09:47 ES Penicillins AdvReac Unknown Unknown Verified 03/17/23 09:47 <DOMINIC Abebe Last Filed: 06/24/23 02:36> Review of Systems Review of Systems: CONSTITUTIONAL: Denies fever, chills, or sweats. CARDIOVASCULAR: Denies chest pain. RESPIRATORY: Denies dyspnea. GASTROINTESTINAL: Denies abdominal pain, nausea, vomiting, or diarrhea. GENITOURINARY: See HPI. MUSCULOSKELETAL: Denies back pain, extremity pain, myalgia. <DOMINIC Abebe Last Filed: 06/24/23 02:36> All systems reviewed & are unremarkable except as noted in HPI and below <Jessy Deluca PA-C - Last Filed: 06/24/23 02:36> [facility] Past Medical History Medical History: Medical History Atrial fibrillation CAD (coronary artery disease) COPD (chronic obstructive pulmonary disease) History of kidney stones History of prostate cancer 05/2016 Pacemaker Stomach ulcer <DOMINIC Abebe Last Filed: 06/24/23 02:36> Surgical History Surgical History: Surgical History H/O resection of stomach History of bilateral carpal tunnel release (2013) Hx of inguinal hernia repair Laparoscopic bilateral inguinal hernia repair with mesh, da Denny assisted 09/22/2021 S/P colon resection S/P triple vessel bypass <DOMINIC Abebe Last Filed: 06/24/23 02:36> Family History Family History: Family History Father Cerebrovascular accident Heart disease Hypertension Mother Cancer Sibling Kidney failure Heart failure Other Colon polyp Depression Malignant neoplasm of prostate <DOMINIC Abebe Last Filed: 06/24/23 02:36> Social History Social History: Social History Smoking packs per day: 0.5 Smoking cigarettes per day: 10.0 Years smoked: 67 Smoking pack-years: 33.50 Smoking status: Current every day smoker Tobacco type: cigarettes [place]
[2023-06-23 22:57] VITALS: BP 122/73; PULSE 77; RESP 16; O2SAT 98
[2023-06-23 23:16] LABS: Non Pathogenic Casts 0-2
[2023-06-23 23:34] LABS: Bacteria Urine 1+ /hpf; Squamous Epithelial Cell Urine None seen /hpf (Few)
[2023-06-23 23:35] LABS: RBC Urine >100 /hpf (0-2); WBC Urine 31-50 /hpf (0-3)
[2023-06-23 23:36] LABS: Appearance Urine Other (Clear); Bilirubin Urine 3+ (Negative); Blood Urine 2+ (Negative); Color Urine Dark Red (Yellow); Glucose Urine UA Negative (Negative); Ketones Urine 2+ mg/dL (Negative); Nitrate Urine Positive (Negative); Protein Urine 3+ mg/dL (Negative); pH Urine 5.5 (5.0-9.0)
[2023-06-23 23:37] LABS: Add Urine Microscopic? YES; Leukocyte Esterase Ur 3+ LEU/UL (Negative)
[2023-06-24] VITALS (7 sets, daily range): BP systolic 119–164; BP diastolic 63–97; PULSE 64–83; RESP 16–18; TEMP 36.3–36.6; O2SAT 96–100; BMI 25.3
[2023-06-24] MEDS: SODIUM CHLORIDE 0.9% IV 1,000 ML 999 ML IV CONT (00:31)
--- NOTE | 2023-06-24 00:34 | PC.NURSE ---
PCT Placed 3 way catheter for cbi. Pt did verbalize allergy to latex, however has had a catheter before and did ok with it . ERP notified.
--- NOTE | 2023-06-24 00:36 | PC.NURSE ---
HS contacted to go to central supply to see if we have a latex free 3 way catheter.
--- NOTE | 2023-06-24 01:10 | PC.NURSE ---
HS returned call that there is not a catheter that is not latex. ERP notified. Pt has already received 1 full bag of cbi fluid and is starting to clear his urine a little bit to a fruit punch color.
--- NOTE | 2023-06-24 01:43 | PC.NURSE ---
CBI Clamped per JUNE hidalgo
[2023-06-24] MEDS: diphenhydrAMINE HCl INJ 50 MG/ML VIAL 25 MG IV PUSH ×4 (02:23→20:40)
[2023-06-24] MEDS: ACETAMINOPHEN 325 MG TABLET 650 MG PO (02:23)
--- NOTE | 2023-06-24 03:19 | ADMGEN ---
This patient, Justin Art, was admitted to Medical Room 252-01. Patient/family oriented to hospital policies and general routines including ID bracelet, bed and alarms, visiting hours, pain management, procedures, bathroom and other care routines, personal items, smoking policy, room service/diet, and visiting hours. Information on how to activate the Rapid Response Team has been discussed. Patient/Family are encouraged to report perceived risks to care and to ask questions if they do not understand what they are told or what they should do.
[2023-06-24] MEDS: HYDROmorphone HCL INJ (*CRX) 1 MG/ML SYR 0.5 MG IV PUSH ×2 (04:29→23:42)
--- NOTE | 2023-06-24 04:39 | WPDURCON ---
Urology Consult Note HPI Date Seen: 06/24/23 Requesting Physician: Micahel Franklin MD Primary Care Provider: Vamsi Mlaone MD Consult Narrative Narrative: Justin Art is a 83 year old male h/p prostate cancer s/p radiation and androgen ablation. Has not returned to our office sice 05/2020. PSA .16 at the time. Admitted with gross hematuria and placed on CBI. UA shows possible UTI. CT shows bone lesion. Will order PSA. continue CBI. Will be seen by Urology iggy [facility] Past Medical History Medical History Atrial fibrillation CAD (coronary artery disease) COPD (chronic obstructive pulmonary disease) History of kidney stones History of prostate cancer 05/2016 Pacemaker Stomach ulcer Surgical History Surgical History H/O resection of stomach History of bilateral carpal tunnel release (2013) Hx of inguinal hernia repair Laparoscopic bilateral inguinal hernia repair with mesh, da Denny assisted 09/22/2021 S/P colon resection S/P triple vessel bypass Family History Family History Father Cerebrovascular accident Heart disease Hypertension Mother Cancer Sibling Kidney failure Heart failure Other Colon polyp Depression Malignant neoplasm of prostate Social History Social History Smoking packs per day: 0.5 Smoking cigarettes per day: 10.0 Years smoked: 67 Smoking pack-years: 33.50 Smoking status: Current every day smoker Tobacco type: cigarettes Alcohol intake: current Drinks per week: 2 Alcohol use details: BEER Substance use: never Substance use type: does not use Do You Feel Safe in your Home?: Yes Lack of Transportation: No Lack of Food: Never True Current Housing: I Have Housing Concerned About Future Housing: No Difficulty Paying Gas/Electric Bills: No Difficulty Paying for Meds: No Currently Unemployed: No Education: High School Diploma/GED Difficulty w/ Childcare or Family Care: No Living arrangements: alone Occupation/Education: retired Gender identity (if verbalized by the patient): Male Sexual Orientation (if Verbalized by the Patient): Straight or Heterosexual Spiritual care concerns: No Agree to blood products: Yes Meds Home Medications and Allergies Home Medications Medication Instructions Recorded Confirmed Type aspirin 325 mg tablet 325 mg PO DAILY 07/23/21 06/24/23 History mecobalamin (vitamin B12) 5,000 500 mcg PO HS 07/23/21 06/24/23 History mcg lozenge fluticasone 250 mcg-salmeterol 50 1 inh inhalation BID #60 ea 10/14/22 06/24/23 Rx mcg/dose blistr powdr for inhalation (Advair Diskus) albuterol sulfate 90 mcg/actuation 2 inh inhalation QID PRN shortness 11/29/22 06/24/23 Rx aerosol inhaler of breath or wheezing #8.5 grams carvedilol 3.125 mg tablet (Coreg) 3.125 mg PO Q12HR 1 month #60 tabs 02/23/23 06/24/23 Rx spironolactone 25 mg tablet 25 mg PO QAM 1 month #30 tabs 02/23/23 06/24/23 Rx rosuvastatin 20 mg tablet 20 mg PO DAILY 1 month #90 tabs 03/17/23 06/24/23 Rx sacubitril 24 mg-valsartan 26 mg 1 tablet PO BID 06/24/23 06/24/23 History tablet (Entresto) Allergies Allergy/AdvReac Type Severity Reaction Status Date / Time latex Allergy Itching/HIV Verified 03/17/23 09:47 ES Penicillins AdvReac Unknown Unknown Verified 03/17/23 09:47 Vital Signs Vital Signs - 24 hr 06/23/23 21:40 06/23/23 22:57 06/24/23 03:07 Temperature 98.4 F Pulse Rate 80 77 83 Respiratory Rate 26 H 16 16 Blood Pressure 109/89 122/73 Pulse Oximetry 98 98 98 Oxygen Delivery Room Air 06/24/23 03:20 06/24/23 04:00 Temperature 97.8 F Pulse Rate 79 Respiratory Rate 17 Blood Pressure 164/97 H Pulse Oximetry 100 Oxygen Delivery Room
[2023-06-24 05:55] LABS: Prostate Specific Antigen 0.4 ng/mL (< OR = 4.0)
--- NOTE | 2023-06-24 06:10 | PC.NURSE ---
PT CONTINUES TO COMPLAIN OF PAIN RT WOOD. MULTIPLE NURSES HAVE ATTEMPTED TO IRRIGATE 3 WAY AND REMOVE CLOTS. OUTPUT IS EXTREMELY THICK STICKING TO THE TUBING AND CLOGGING THE WOOD BAG. BAG AND TUBING HAVE BEEN CHANGED. PT CONTINUES TO HAVE CLOTS PASS. THERE IS ALSO LEAKING AROUND THE URETHRA WITH A GOOD AMOUNT OF KINSEY RED BLOOD COMING FROM THE PENIS TIP. PT ALSO COMPLAINS OF ITCHING RELATED TO LATEX ALLERGY. BENADRYL GIVEN AND PT NOW HAS A PRN ORDER IF THIS ISSUE CONTINUES. 3 WAY IS CURRENTLY DRAINING BUT IS REQUIRING FREQUENT MANAGEMENT AND IRRIGATION.
--- NOTE | 2023-06-24 07:30 | PM.IMHP ---
H&P: HPI History of Present Illness Date/Time: 06/24/23 07:30 Chief Complaint: Hematuria/urinary retention Narrative: Patient is an 83-year-old male who presented to the emergency department with complaints of hematuria and urinary retention. Patient reports a past medical history of prostate cancer with radiation treatment, CAD, cardiomyopathy, hypertension, thrombocytopenia, BPH, iron-deficiency anemia, HLD, and current smoker. Patient states for the last 6 months he has had blood in his urine but typically it is a scant amount and goes away but last night he started passing blood clots and having urinary retention. Due to patient previous history of thrombocytopenia patient is currently only on an ASA will hold for now. Patient's initial labs in the emergency department were unremarkable other than urinalysis that was nitrate and leukocytosis positive, H&H stable. CT pelvis findings showed moderately enlarged prostate with brachytherapy seeds in instant finding of sclerotic lesions in the left 6th rib as well as left T11 transverse process very suggestive metastatic disease. CBI was initiated in the emergency department and patient was admitted to the medical-surgical unit for further evaluation and treatment of hematuria with consult to Urology. Initial urinary catheter was placed incorrectly with the catheter in the urethra replaced by Urology hematuria improving and CBI rate slowed. PSA was completed and was 0.4.. CT chest pending for further evaluation of lesion will place consult to oncology. Patient otherwise denies any SOB, CP, Dizziness, fever, chills, or N/V. Review of Systems Review of Systems: All systems reviewed & are unremarkable except as noted in HPI and below (HPI) [facility] Past Medical History Medical History Atrial fibrillation CAD (coronary artery disease) COPD (chronic obstructive pulmonary disease) History of kidney stones History of prostate cancer 05/2016 Pacemaker Stomach ulcer Surgical History Surgical History H/O resection of stomach History of bilateral carpal tunnel release (2013) Hx of inguinal hernia repair Laparoscopic bilateral inguinal hernia repair with mesh, da Denny assisted 09/22/2021 S/P colon resection S/P triple vessel bypass Family History Family History Father Cerebrovascular accident Heart disease Hypertension Mother Cancer Sibling Kidney failure Heart failure Other Colon polyp Depression Malignant neoplasm of prostate Social History Social History Smoking packs per day: 0.5 Smoking cigarettes per day: 10.0 Years smoked: 67 Smoking pack-years: 33.50 Smoking status: Current every day smoker Tobacco type: cigarettes Alcohol intake: current Drinks per week: 2 Alcohol use details: BEER Substance use: never Substance use type: does not use Do You Feel Safe in your Home?: Yes Lack of Transportation: No Lack of Food: Never True Current Housing: I Have Housing Concerned About Future Housing: No Difficulty Paying Gas/Electric Bills: No Difficulty Paying for Meds: No Currently Unemployed: No Education: High School Diploma/GED Difficulty w/ Childcare or Family Care: No Living arrangements: alone Occupation/Education: retired Gender identity (if verbalized by the patient): Male Sexual Orientation (if Verbalized by the Patient): Straight or Heterosexual Spiritual care concerns: No Agree to blood products: Yes Meds Home Medications and Allergies Home Medications Medication Instructions Recorded Confirmed Type aspirin 325 mg tablet 325 mg PO DAILY 07/23/21 06/24/23 History mecobalamin (vitamin B12) 5,000 500 mcg PO HS 07/23/21 06/24/23 History mcg lozenge
[2023-06-24 08:10] LABS: Hematocrit 46.3 % (42.0-52.0); Hemoglobin 14.6 g/dL (14.0-18.0); Mean Corpuscular HGB Conc 31.5 g/dl (32-36); Mean Corpuscular Hemoglobin 31.4 pg (26-34); Mean Corpuscular Volume 99.6 fl (80-100); Platelet Count Result 181 k/mm3 (150-375); Red Blood Count 4.65 M/mm3 (4.6-6.20); Red Cell Distribution Width 14.3 % (11.5-14.5)
[2023-06-24 08:26] LABS: Alanine Aminotransferase 24 U/L (6-50); Albumin Level 3.9 g/dL (3.5-5.1); Alkaline Phosphatase 129 U/L (38-126); Anion Gap 8 mmol/L (8-16); Aspartate Amino Transferase 29 U/L (17-59); Bilirubin,Total 0.5 mg/dL (0.2-1.3); Blood Urea Nitrogen 18 mg/dL (9-20); Calcium 8.9 mg/dL (8.4-10.2); Carbon Dioxide 22 mmol/L (22-30); Chloride 111 mmol/L (98-107); Estimated CRCL calculation 53 ml/min; Estimated Glomerular Filt Rate > 60; Glucose 121 mg/dL (65-110); Potassium 4.2 mmol/L (3.4-5.0); Sodium 141 mmol/L (137-145)
[2023-06-24] MEDS: SPIRONOLACTONE 25 MG TABLET PO (09:00)
[2023-06-24] MEDS: ROSUVASTATIN 10 MG TABLET 20 MG PO (09:00)
[2023-06-24] MEDS: PANTOPRAZOLE 40 MG TABLET PO (09:00)
[2023-06-24] MEDS: SACUBITRIL/VALSARTAN 24-26 MG TABLET 1 TAB PO ×2 (09:00→16:23)
[2023-06-24] MEDS: carvediloL 3.125 MG TABLET PO ×2 (09:01→20:39)
--- NOTE | 2023-06-24 09:10 | WPDURCON ---
Assessment and Plan Assessment and plan (1) Gross hematuria: Code(s): R31.0 - Gross hematuria Status: Acute Assessment and Plan: Intermittent gross hematuria for months, worsened on 06/23/23. 3-way catheter placed and started on CBI. Urine is clear therefore CBI titrated down this am. Okay to advance diet, no indication for surgical intervention at this time as urine is clear and goddard is draining well. Continue CBI, titrate to keep urine clear. Hold aspirin. (2) UTI (urinary tract infection): Qualifiers: Hematuria presence: with hematuria Urinary tract infection type: acute cystitis Qualified Code(s): N30.01 - Acute cystitis with hematuria Code(s): N39.0 - Urinary tract infection, site not specified Status: Suspected Assessment and Plan: Suspected UTI with abnormal urinalysis. Continue IV ceftriaxone while awaiting urine culture results (3) History of prostate cancer: Code(s): Z85.46 - Personal history of malignant neoplasm of prostate Status: Acute Assessment and Plan: S/p IMRT and androgen ablation; 2017. PSA drawn today is 0.4. Will need to resume close follow up with Dr. Holman. (4) Metastatic disease: Qualifiers: Area of secondary neoplastic involvement: bone Qualified Code(s): C79.51 - Secondary malignant neoplasm of bone Code(s): C79.9 - Secondary malignant neoplasm of unspecified site Status: Acute Assessment and Plan: CT a/p shows sclerotic lesions consistent with metastatic disease, likely related to prostate cancer. Urology Consult Note HPI Date Seen: 06/24/23 Requesting Physician: Michael Franklin MD Primary Care Provider: Vamsi Malone MD Consult Narrative Narrative: Justin Art is a 83 year old male with a history of prostate cancer diagnosed in 2017 s/p radiation therapy and androgen ablation who is being seen in consultation for evaluation of gross hematuria. He was previously seen by Dr. Holman, last seen 05/2020 with a PSA of 0.16. He was previously taking tamsulosin but stopped this over the past 2-3 months as he ran out of his medication. He presented to the emergency department on 06/23/2023 as he began passing several clots in his urine. He reports for the past 5 months he has had intermittent hematuria that usually clears on its own but this time became more severe. On arrival, a CT of the abdomen/pelvis was completed that showed a moderately enlarged prostate with brachytherapy seeds, irregular filling defects in the dependent bladder consistent with blood clot, and sclerotic lesions consistent with metastatic disease. His hemoglobin was within normal limits. UA abnormal, concerning for infection. Urine culture is pending. A 3-way catheter was placed and he was started on CBI. At the time of my evaluation, urine is clear, tap water appearance on brisk CBI. He offers no complaints. Denies suprapubic pain, pelvic pain, nausea, vomiting, fever, chills. Review of Systems Review of Systems: All systems reviewed & are unremarkable except as noted in HPI and below PMFSH Past Medical History Medical History (Updated 06/24/23 @ 09:21 by Carlita Goncalves PA-C) Atrial fibrillation CAD (coronary artery disease) COPD (chronic obstructive pulmonary disease) History of kidney stones History of prostate cancer 05/2016 Pacemaker Stomach ulcer Surgical History Surgical History H/O resection of stomach History of bilateral carpal tunnel release (2013) Hx of inguinal hernia repair Laparoscopic bilateral inguinal hernia repair with mesh, da Denny assisted 09/22/2021 S/P colon resection S/P triple vessel bypass Family History Family History Father Cerebrovascular accident Heart disease Hypertension Mother Cancer Sibling Kidney failure Heart failur
--- NOTE | 2023-06-24 09:16 | WPDUROPN2 ---
Progress Note: A&P Assessment and Plan (1) Urinary retention: Code(s): R33.9 - Retention of urine, unspecified Status: Acute (2) Gross hematuria: Code(s): R31.0 - Gross hematuria Status: Acute Assessment and Plan: Displaced urethral catheter with ongoing urinary retention and hematuria (confirmed by repeat CT scan). Catheter was replaced with a [address] catheter at the bedside with little difficulty. Urine cleared probably with catheter placement. 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 to confirm (can be done as outpt). CT scan shows normal upper urinary tracts without significant clot in his bladder. At some point he will need outpatient cystoscopy. Subjective Subjective Date/Time Seen: 06/24/23 09:16 Interval history: Persistent hematuria morning following admission through the emergency department. Catheter not appear to be inserted correctly into his bladder and was likely inflated in urethra. Patient was surprisingly comfortable despite the displace catheter. Review of Systems Cardiovascular: Cardiovascular: Denies chest pain, Denies lightheadedness, Denies palpitations and Denies dyspnea Respiratory: Respiratory: Denies dyspnea Gastrointestinal: Gastrointestinal: Denies diarrhea, Denies nausea and Denies vomiting Genitourinary: Genitourinary: Denies hematuria and Denies dysuria Endocrine: Endocrine: Denies palpitations Exam Const: General: no acute distress Resp: Effort & Inspection: normal respiratory effort GI: Inspection: non-distended GI Palp: No abdominal tenderness and No Guarding due to palpation present (GI) Auscultation: normal bowel sounds Urinary Catheter: Urinary Catheter: urine red and urine with clots Objective Data Vital Signs Vital Signs: Vital Signs - 24 hr 06/23/23 21:40 06/23/23 22:57 06/24/23 03:07 Temperature 98.4 F Pulse Rate 80 77 83 Respiratory Rate 26 H 16 16 Blood Pressure 109/89 122/73 Pulse Oximetry 98 98 98 Oxygen Delivery Room Air 06/24/23 03:20 06/24/23 04:00 06/24/23 09:01 Temperature 97.8 F Pulse Rate 79 64 Respiratory Rate 17 Blood Pressure 164/97 H Pulse Oximetry 100 Oxygen Delivery Room Air Intake/Output Intake/Output: Intake & Output 06/21/23 06/22/23 06/23/23 06/24/23 23:59 23:59 23:59 23:59 Intake Total 1300 Output Total 1100 Balance 200 Meds/Results Medications: Active Medications Generic Name Dose Route Start Last Admin Trade Name Freq PRN Reason Stop Dose Admin Albuterol 2 puff 06/24/23 07:25 Albuterol Sulfate (*Sp) Aerosol 1 Puff INHALATION QID PRN shortness of breath or wheezing Carvedilol 3.125 mg 06/24/23 09:00 06/24/23 09:01 Carvedilol 3.125 Mg Tablet PO 3.125 mg Q12HR MIKE Administration Cyanocobalamin 500 mcg 06/24/23 21:00 Cyanocobalamin 500 Mcg Tablet PO HS MIKE Diphenhydramine HCl 25 mg 06/24/23 04:22 06/24/23 09:00 Diphenhydramine Hcl Inj 50 Mg/Ml Vial IV PUSH 25 mg Q6H PRN Administration Itching Hydromorphone HCl 0.5 mg 06/24/23 04:20 06/24/23 04:29 Hydromorphone Hcl Inj (*Crx) 1 Mg/Ml Syr IV PUSH 0.5 mg Q4H PRN Administration Pain Rated 7-10 Ceftriaxone Sodium 1 gm in 50 mls @ 100 mls/hr 06/24/23 23:00 Rocephin 1 Gm/Ns 50 Ml IVPB Q24H MIKE Ondansetron HCl 4 mg 06/24/23 07:21 Ondansetron Inj 4 Mg/2 Ml Vial IV PUSH Q6H PRN Nausea And Vomiting Pantoprazole Sodium 40 mg 06/24/23 09:00 06/24/23 09:00 Pantoprazole 40 Mg Tablet PO 40 mg QAM MIKE Administration Rosuvastatin Calcium 20 mg 06/24/23 09:00 06/24/23 09:00 Rosuvastatin 10 Mg Tablet PO 20 mg DAILY MIKE Administration Sacubitril/Valsartan 1 tab 06/24/23 09:00 06/24/23 09:00 Sacubitril/Valsartan 24-26 Mg Tablet PO 1 tab BID MIKE Administration Fluticasone/Salmeterol 2 puff 06/24/23 08:00 Fluticasone/Salmeterol 115-21 Mcg Inhaler
--- NOTE | 2023-06-24 17:06 | PDONCCN ---
HPI - Date of Consult Date/Time: 06/24/23 17:06 Requesting Physician: Michael Franklin MD Primary Care Provider: Vamsi Malone MD - Consult Narrative Reason for consult: Bone lesions. Narrative: Justin Art is a 83 year old male with history of prostate cancer diagnosed 6 years ago status post radiation therapy treatment. Patient came into the hospital with intermittent hematuria. UA showed possible UTI. CT scan showed bone lesion. CT chest showed 3-4 mm indeterminate pulmonary nodules in the right upper lobe and sclerotic lesion of the left 8-year-old and 13 suspicious for metastatic disease. PSA came back normal at 0.4. Six years ago when prostate cancer was diagnosis PSA was 8. He denies any bone pain. Denies any weight loss. Review of Systems - Review of Systems All systems reviewed & are unremarkable except as noted in [facility] and [facility] Medical History: Medical History (Last Reviewed 06/24/23 @ 11:13 by Roseanne Perea APRN) Atrial fibrillation CAD (coronary artery disease) COPD (chronic obstructive pulmonary disease) History of kidney stones History of prostate cancer 05/2016 Pacemaker Stomach ulcer Surgical History: Surgical History (Last Reviewed 06/24/23 @ 11:13 by Roseanne Perea APRN) H/O resection of stomach History of bilateral carpal tunnel release Onset Date: 2013 Hx of inguinal hernia repair Laparoscopic bilateral inguinal hernia repair with mesh, da Denny assisted 09/22/2021 S/P colon resection S/P triple vessel bypass Family History: Family History (Last Reviewed 06/24/23 @ 11:13 by Roseanne Perea APRN) Father Cerebrovascular accident Heart disease Hypertension Mother Cancer Sibling Kidney failure Heart failure Other Colon polyp Depression Malignant neoplasm of prostate - Social History Social History: Social History (Last Reviewed 06/24/23 @ 11:13 by Roseanne Perea APRN) Gender Identity: Gender identity (if verbalized by the patient): Male Sexual Orientation: Sexual Orientation (if Verbalized by the Patient): Straight or Heterosexual Alcohol Use: Alcohol intake: current Drinks per week: 2 Alcohol use details: BEER Substance Use: Substance use: never Substance use type: does not use Others: Spiritual care concerns: No Agree to blood products: Yes Living Arrangements: Living arrangements: alone Oppucation/Education: Occupation/Education: retired Smoking Status: Smoking status: Current every day smoker Tobacco type: cigarettes Smoking Pack-years: Smoking packs per day: 0.5 Smoking cigarettes per day: 2 Years smoked: 67 Smoking pack-years: 10.05 Social Determinants of Health: Do You Feel Safe in your Home?: Yes Has the Lack of Transportation Kept You From Medical Appointments or From Getting Medications?: No Within the Past 12 Months, Were You Worried Whether Your Food Would Run Out Before You Got Money to Buy More?: Never True What is Your Housing Situation Today?: I Have Housing Are You Worried That in the Next 2 Months, You May Not Have Your Own Housing to Live In?: No Do You Have Trouble Paying Your Heating Or Electricity Bill?: No Do You Have Trouble Paying For Medicines?: No Are You Currently Unemployed and Looking for Work?: No Highest Level of Education Completed: High School Diploma/GED Do You Have Trouble With Childcare or the Care of a Family Member?: No Exam - Vital Signs Vital Signs - 24 hr 06/23/23 21:40 06/23/23 22:57 06/24/23 03:07 Temperature 36.9 C Pulse Rate 80 77 83 Respiratory Rate 26 H 16 16 Blood Pressure 109/89 122/73 Pulse Oximetry 98 98 98 Oxygen Delivery Room Air 06/24/23 03:20 06/24/23 04:00 06/24/23 09:01 Temperature 36.6 C Pulse Rate 79 64 Respiratory Rate 17 Blood Pressure 164/97 H Pulse Oximetry 100 Oxygen Deliver
[2023-06-24 17:32] LABS: Immunoglobulin A 104 mg/dL (70-400); Immunoglobulin G 572 mg/dL (700-1600); Immunoglobulin M 44 mg/dL (40-230)
[2023-06-24] MEDS: FLUTICASONE/SALMETEROL 115-21 MCG INHALER 1 PUFF 2 PUFF INHALATION (20:17)
[2023-06-24] MEDS: CYANOCOBALAMIN 500 MCG TABLET PO (20:39)
[2023-06-25 04:29] VITALS: BP 113/82; PULSE 85; RESP 16; TEMP 36.6; O2SAT 96
[2023-06-25 05:22] LABS: Hematocrit 41.8 % (42.0-52.0); Hemoglobin 13.3 g/dL (14.0-18.0); Mean Corpuscular HGB Conc 31.8 g/dl (32-36); Mean Corpuscular Hemoglobin 31.3 pg (26-34); Mean Corpuscular Volume 98.4 fl (80-100); Mean Platelet Volume 10.8 fl (7.4-10.4); Platelet Count Result 153 k/mm3 (150-375); Red Blood Count 4.25 M/mm3 (4.6-6.20); White Blood Count 9.4 K/mm3 (4.5-10.0)
[2023-06-25 05:40] LABS: Alanine Aminotransferase 21 U/L (6-50); Albumin Level 3.5 g/dL (3.5-5.1); Alkaline Phosphatase 97 U/L (38-126); Anion Gap 5 mmol/L (8-16); Aspartate Amino Transferase 22 U/L (17-59); Bilirubin,Total 0.9 mg/dL (0.2-1.3); Blood Urea Nitrogen 15 mg/dL (9-20); Calcium 8.7 mg/dL (8.4-10.2); Carbon Dioxide 24 mmol/L (22-30); Chloride 105 mmol/L (98-107); Estimated CRCL calculation 53 ml/min; Estimated Glomerular Filt Rate > 60; Glucose 136 mg/dL (65-110); Potassium 4.1 mmol/L (3.4-5.0); Sodium 134 mmol/L (137-145)
[2023-06-25] MEDS: FLUTICASONE/SALMETEROL 115-21 MCG INHALER 1 PUFF 2 PUFF INHALATION (07:47)
[2023-06-25 07:51] VITALS: O2SAT 92
[2023-06-25 08:52] VITALS: BP 116/73; PULSE 78; RESP 16; TEMP 36.1; O2SAT 94
[2023-06-25 08:53] VITALS: PULSE 78
[2023-06-25] MEDS: SACUBITRIL/VALSARTAN 24-26 MG TABLET 1 TAB PO (08:53)
[2023-06-25] MEDS: ROSUVASTATIN 10 MG TABLET 20 MG PO (08:53)
[2023-06-25] MEDS: PANTOPRAZOLE 40 MG TABLET PO (08:53)
[2023-06-25] MEDS: carvediloL 3.125 MG TABLET PO (08:53)
[2023-06-25] MEDS: SPIRONOLACTONE 25 MG TABLET PO (08:53)
--- NOTE | 2023-06-25 09:49 | WPDUROPN2 ---
Progress Note: A&P Assessment and Plan (1) Urinary retention: Code(s): R33.9 - Retention of urine, unspecified Status: Acute (2) Gross hematuria: Code(s): R31.0 - Gross hematuria Status: Acute Assessment and Plan: Displaced urethral catheter with ongoing urinary retention and hematuria (confirmed by repeat CT scan). 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 to confirm (can be done as outpt). CT scan shows normal upper urinary tracts without significant clot in his bladder. At some point he will need outpatient cystoscopy. urine clear today, ok to dc goddard and give void trial Subjective Subjective Date/Time Seen: 06/25/23 09:49 Interval history: doing well, urine clear off cbi. NAEO. Review of Systems Cardiovascular: Cardiovascular: Denies chest pain, Denies lightheadedness, Denies palpitations and Denies dyspnea Respiratory: Respiratory: Denies dyspnea Gastrointestinal: Gastrointestinal: Denies diarrhea, Denies nausea and Denies vomiting Genitourinary: Genitourinary: Denies hematuria and Denies dysuria Endocrine: Endocrine: Denies palpitations Exam Const: General: no acute distress Resp: Effort & Inspection: normal respiratory effort GI: Inspection: non-distended GI Palp: No abdominal tenderness and No Guarding due to palpation present (GI) Auscultation: normal bowel sounds Urinary Catheter: Urinary Catheter: patent and draining and urine clear Objective Data Vital Signs Vital Signs: Vital Signs - 24 hr 06/24/23 14:25 06/24/23 19:15 06/24/23 20:22 Temperature 36.3 C L 36.4 C Pulse Rate 73 72 74 Respiratory Rate 17 18 Blood Pressure 119/63 124/67 Pulse Oximetry 96 97 96 Oxygen Delivery Room Air 06/24/23 20:39 06/24/23 20:30 06/25/23 04:29 Temperature 36.6 C Pulse Rate 74 85 Respiratory Rate 16 Blood Pressure 113/82 Pulse Oximetry 96 Oxygen Delivery Room Air 06/25/23 07:51 06/25/23 08:52 06/25/23 08:53 Temperature 36.1 C L Pulse Rate 78 78 Respiratory Rate 16 Blood Pressure 116/73 Pulse Oximetry 92 94 Oxygen Delivery Room Air Intake/Output Intake/Output: Intake & Output 06/22/23 06/23/23 06/24/23 06/25/23 23:59 23:59 23:59 23:59 Intake Total 3100 290 Output Total 4717 016 Balance 9175 -309 Meds/Results Medications: Active Medications Generic Name Dose Route Start Last Admin Trade Name Freq PRN Reason Stop Dose Admin Albuterol 2 puff 06/24/23 07:25 Albuterol Sulfate (*Sp) Aerosol 1 Puff INHALATION QID PRN shortness of breath or wheezing Carvedilol 3.125 mg 06/24/23 09:00 06/25/23 08:53 Carvedilol 3.125 Mg Tablet PO 3.125 mg Q12HR MIKE Administration Cyanocobalamin 500 mcg 06/24/23 21:00 06/24/23 20:39 Cyanocobalamin 500 Mcg Tablet PO 500 mcg HS MIKE Administration Diphenhydramine HCl 25 mg 06/24/23 04:22 06/24/23 20:40 Diphenhydramine Hcl Inj 50 Mg/Ml Vial IV PUSH 25 mg Q6H PRN Administration Itching Hydromorphone HCl 0.5 mg 06/24/23 04:20 06/24/23 23:42 Hydromorphone Hcl Inj (*Crx) 1 Mg/Ml Syr IV PUSH 0.5 mg Q4H PRN Administration Pain Rated 7-10 Ceftriaxone Sodium 1 gm in 50 mls @ 100 mls/hr 06/24/23 23:00 06/24/23 22:59 Rocephin 1 Gm/Ns 50 Ml IVPB Infused Q24H MIKE Infusion Ondansetron HCl 4 mg 06/24/23 07:21 Ondansetron Inj 4 Mg/2 Ml Vial IV PUSH Q6H PRN Nausea And Vomiting Pantoprazole Sodium 40 mg 06/24/23 09:00 06/25/23 08:53 Pantoprazole 40 Mg Tablet PO 40 mg QAM MIKE Administration Rosuvastatin Calcium 20 mg 06/24/23 09:00 06/25/23 08:53 Rosuvastatin 10 Mg Tablet PO 20 mg DAILY MIKE Administration Sacubitril/Valsartan 1 tab 06/24/23 09:00 06/25/23 08:53 Sacubitril/Valsartan 24-26 Mg Tablet PO 1 tab BID MIKE Administration Fluticasone/Salmeterol 2 puff 06/24/23 08:00 06/25/23 07:47 Fluticasone/Salmeterol 115-21 Mcg Inhale
--- NOTE | 2023-06-25 11:52 | PM.DS ---
DS: Admitting Diagnosis Discharge Date 06/25/2023 Admitting Diagnosis Hematuria DS: Discharge Diagnosis Discharge Diagnosis (1) Urinary retention: Code(s): R33.9 - Retention of urine, unspecified Status: Acute (2) Gross hematuria: Code(s): R31.0 - Gross hematuria Status: Acute (3) Enlarged prostate: Code(s): N40.0 - Benign prostatic hyperplasia without lower urinary tract symptoms Status: Acute (4) Metastatic disease: Qualifiers: Area of secondary neoplastic involvement: bone Qualified Code(s): C79.51 - Secondary malignant neoplasm of bone Code(s): C79.9 - Secondary malignant neoplasm of unspecified site Status: Acute (5) UTI (urinary tract infection): Qualifiers: Hematuria presence: with hematuria Urinary tract infection type: acute cystitis Qualified Code(s): N30.01 - Acute cystitis with hematuria Code(s): N39.0 - Urinary tract infection, site not specified Status: Suspected (6) Ischemic cardiomyopathy: Code(s): I25.5 - Ischemic cardiomyopathy Status: Acute (7) Hypertension: Qualifiers: Hypertension type: primary hypertension Qualified Code(s): I10 - Essential (primary) hypertension Code(s): I10 - Essential (primary) hypertension Status: Acute Plan Hematuria/Urinary Retention previous HX UTI urology consulted CBI started urology had to replace it hematuria clearing PSA 0.4 CT shows enlarged prostate Hold ASA UTI Urine cultures Pending nitrate and leukocytosis positive CBI Monitor CBC, CMP watch for sepsis. Monitor vital signs. Ceftriaxone pending cultures and sensitivities Monitor for obstructive uropathy and pyelonephritis Metastatic disease Incidental findings on CT abdomen showing 6 rib lesion as well as T11 transverse previous prostate cancer treatment with radiation Oncology consulted Chest CT confirmed lesions and lung nodules noted CAD/CMP -resume patient's home medications HLD resume statin Disposition: Patient ambulatory and discharged to home will need to follow-up with urology for cyctoscopy and Oncology for PET SCAN. DS: Summary Hospital Course Reason for hospitalization: Hematuria Hospital Course: Chief Complaint: Hematuria/urinary retention Narrative: Patient is an 83-year-old male who presented to the emergency department with complaints of hematuria and urinary retention.? Patient reports a past medical history of prostate cancer with radiation treatment, CAD, cardiomyopathy, hypertension, thrombocytopenia, BPH, iron-deficiency anemia, HLD, and current smoker.? Patient states for the last 6 months he has had blood in his urine but typically it is a scant amount and goes away but last night he started passing blood clots and having urinary retention.? Due to patient previous history of thrombocytopenia patient is currently only on an ASA will hold for now.? Patient's initial labs in the emergency department were unremarkable other than urinalysis that was nitrate and leukocytosis positive, H&H stable.? CT pelvis findings showed moderately enlarged prostate with brachytherapy seeds in instant finding of sclerotic lesions in the left 6th rib as well as left T11 transverse process very suggestive metastatic disease.? CBI was initiated in the emergency department and patient was admitted to the medical-surgical unit for further evaluation and treatment of hematuria with consult to Urology.? Initial urinary catheter was placed incorrectly with the catheter in the urethra replaced by Urology hematuria improving and CBI rate slowed.? PSA was completed and was 0.4..? CT chest pending for further evaluation of lesion will place consult to oncology.? Patient otherwise denies any SOB, CP, Dizziness, fever, chills, or N/V. 06/25: Discharged Patient in no acute distress urine drained clear and goddard removed with post void.
[2023-06-25] MEDS: ACETAMINOPHEN 325 MG TABLET 650 MG PO (12:35)
[2023-06-25 13:52] VITALS: BP 123/61; PULSE 72; RESP 18; TEMP 36.6; O2SAT 97
[2023-06-27 23:47] LABS: Kappa\\Lambda Light Chains 1.43 (0.26-1.65); Lambda Light Chain 12.9 mg/L (5.7-26.3)
== END 2023-06-25 15:30 | disposition home or self-care (01) ==
LOC: ANHED 06-24 02:36 → ANH2MED 06-24 03:09
PROVIDERS: Internal Medicine Hematology & Oncology; Nurse Practitioner Family; Urology; Admitting Provider Internal Medicine; Emergency Provider Physician Assistant; PCP Family Medicine Adolescent Medicine; Visit Provider Internal Medicine
DX: N30.01 Acute cystitis with hematuria (principal); T83.021A Displacement of indwelling urethral catheter, initial encounter; Y84.6 Urinary catheterization as the cause of abnormal reaction of the patient, or of later complication, without mention of misadventure at the time of the procedure; C79.51 Secondary malignant neoplasm of bone; Z92.3 Personal history of irradiation; N40.0 Benign prostatic hyperplasia without lower urinary tract symptoms; I10 Essential (primary) hypertension; I48.91 Unspecified atrial fibrillation; M48.56XA Collapsed vertebra, not elsewhere classified, lumbar region, initial encounter for fracture; I25.5 Ischemic cardiomyopathy; I25.10 Atherosclerotic heart disease of native coronary artery without angina pectoris; Z95.1 Presence of aortocoronary bypass graft; J43.9 Emphysema, unspecified; R91.1 Solitary pulmonary nodule; K80.20 Calculus of gallbladder without cholecystitis without obstruction; J44.9 Chronic obstructive pulmonary disease, unspecified; Z95.0 Presence of cardiac pacemaker; F17.210 Nicotine dependence, cigarettes, uncomplicated; Z85.46 Personal history of malignant neoplasm of prostate; F10.90 Alcohol use, unspecified, uncomplicated; Z79.82 Long term (current) use of aspirin; Z79.51 Long term (current) use of inhaled steroids; Z79.899 Other long term (current) drug therapy; Z82.49 Family history of ischemic heart disease and other diseases of the circulatory system
CPT/HCPCS: 36415; 51700; 71250; 74176; 74178; 80053; 81001; 82784; 83883; 84153; 85025; 85027; 85610; 85730; 86334; 87086; 94640; 96365; 96375; 96376; 99285; A9270; C1757; C1758; G0378; J0696; J1170; J1200; J7030; Q9967

== ENCOUNTER 2024-03-08 13:14 | Outpatient (CLI) | payer MEDICARE, SELFPAY ==
--- NOTE | ~2024-03-08 | PE_ITS ---
EXAMINATION: PET_PETPSMAST_PT DATE: 03/08/2024 15:40 INDICATION: Prostate cancer. TECHNIQUE: 5.364 mCi of Ga-68 gozetotide was administered intravenously. Low dose computed tomography (CT) images were acquired from the base of the brain to the proximal thighs for attenuation correcti on and anatomic localization. Automated exposure control was employed. Dose-length product (DLP) was 889 mGy-cm. Positron emission tomography (PET) images were acquired in the same distribution. COMPARISON: CT chest and pelvis 06/24/2023 FINDINGS: Head/neck: There are no pathologically enlarged lymph nodes. Chest: There is left-sided pleural thickening. There is mild rounded atelectasis in left lower lobe. A calcified right lung nodule and calcified right hilar lymph nodes are consistent with old granuloma tous disease. Cardiomegaly is noted. There are coronary artery calcifications. No pericardial effusio n. There is a left chest wall pacer with leads in the right atrium and right ventricle. There is like ly a tube graft of ascending aorta. There is a 1.5 cm subcutaneous mass in the left posterior thorax with maximum SUV of 2.5, likely a sebaceous cyst. There is sclerosis of left T11 pedicle and transver se process with maximum SUV of 10.6. There is a sclerotic lesion right third rib with increased activ ity. There is focal increased activity in left sixth and seventh ribs. There are old healed left rib fractures. Abdomen/pelvis/proximal thighs: Calcifications in the liver and spleen are consistent with old granul omatous disease. There are gallstones in the gallbladder, which is normal in size. The pancreas, adre nal glands are normal. There is cortical thinning of the kidneys. There is a 1.5 cm cyst in right kid anand. There is calcified atherosclerosis of the aorta and many of the other arteries. There is diverti culosis of the colon without evidence of diverticulitis. There are no dilated loops of bowel. There a re surgical changes around the gastroesophageal junction. The prostate is mildly enlarged. There are brachytherapy seeds in the prostate. Maximum SUV in the prostate is 2.6. There are no pathologically enlarged lymph nodes. There is no free intraperitoneal fluid. There is focal increased activity in L 5 vertebral body and left ilium. IMPRESSION: 1. Bone lesions of increased activity, consistent with metastatic disease. Reviewed, dictated and finalized at location A. [facility] [employer]
== END 2024-03-08 13:15 | disposition home or self-care (01) ==
PROVIDERS: PCP Family Medicine Adolescent Medicine; Visit Provider Urology
DX: C61 Malignant neoplasm of prostate (principal)
CPT/HCPCS: 78815; A9596

== ENCOUNTER 2024-03-21 02:25 | Day surgery (SDC) | payer MEDICARE, SELFPAY ==
--- NOTE | 2024-03-21 10:47 | WPDMODSED ---
Moderate Sedation Note-Pt Data Patient Data Diagnosis: permanently implanted pacemaker at [facility] coronary artery disease with previous bypass grafting Present Complaint: no complaints Procedure to be performed/Plan: pacemaker generator change Allergies Allergy/AdvReac Type Severity Reaction Status Date / Time latex Allergy Itching/HIV Verified 03/21/24 10:38 ES Penicillins AdvReac Unknown Unknown Verified 03/21/24 10:38 Home Medications Medication Instructions Recorded Confirmed Type aspirin 325 mg tablet 325 mg PO DAILY 07/23/21 03/20/24 History mecobalamin (vitamin B12) 5,000 500 mcg PO HS 07/23/21 03/20/24 History mcg lozenge sacubitril 24 mg-valsartan 26 mg 1 tablet PO BID 06/24/23 03/20/24 History tablet (Entresto) rosuvastatin 20 mg tablet 20 mg PO DAILY #90 tabs 01/06/24 01/19/24 Rx carvedilol 3.125 mg tablet (Coreg) 3.125 mg PO Q12HR 1 month #60 tabs 01/30/24 03/20/24 Rx spironolactone 25 mg tablet 25 mg PO QAM 1 month #30 tabs 01/30/24 Rx albuterol sulfate 90 mcg/actuation 90 mcg inhalation BID 03/20/24 03/20/24 History aerosol inhaler fluticasone 250 mcg-salmeterol 50 inhalation 03/20/24 History mcg/dose blistr powdr for inhalation Sedation/Anesthesia: No previous sedation/anesthesia problems (including family history). [facility] Past Medical History Medical History (Updated 02/16/24 @ 15:29 by Celine Juan PA-C) Atrial fibrillation CAD (coronary artery disease) COPD (chronic obstructive pulmonary disease) History of kidney stones History of prostate cancer 05/2016 NSTEMI (non-ST elevated myocardial infarction) (12/2022) Pacemaker Stomach ulcer Surgical History Surgical History H/O resection of stomach History of bilateral carpal tunnel release (2013) Hx of inguinal hernia repair Laparoscopic bilateral inguinal hernia repair with mesh, da Denny assisted 09/22/2021 S/P colon resection S/P triple vessel bypass Family History Family History Father Cerebrovascular accident Heart disease Hypertension Mother Cancer Sibling Kidney failure Heart failure Other Colon polyp Depression Malignant neoplasm of prostate Social History Social History Smoking packs per day: 0.5 Smoking cigarettes per day: 10.0 Years smoked: 67 Smoking pack-years: 33.50 Smoking status: Current every day smoker Tobacco type: cigarettes Alcohol intake: current Drinks per week: 2 Alcohol use details: BEER Substance use: never Substance use type: does not use Do You Feel Safe in your Home?: Yes Lack of Transportation: No Lack of Food: Never True Current Housing: I Have Housing Concerned About Future Housing: No Difficulty Paying Gas/Electric Bills: No Difficulty Paying for Meds: No Currently Unemployed: No Education: High School Diploma/GED Difficulty w/ Childcare or Family Care: No Living arrangements: alone Occupation/Education: retired Gender identity (if verbalized by the patient): Male Sexual Orientation (if Verbalized by the Patient): Straight or Heterosexual Spiritual care concerns: No Agree to blood products: Yes Mod Sed Physical Exam Physical Exam Pre Procedural Exam: Normal: Appearance, Neck, Throat, Airway, Lungs, Heart Size, Heart Rate, Neuro Exam and Extremities and Variation: Heart Rhythm ( irregularly irregular) Hours since solid foods: 12 Hours since liquid intake: 12 Mallampati Classification: class II ASA Classification/Sedation ASA Classification/Sedation ASA Class: II Emergent: No Risks: Risks, benefits and alternatives explained and patient/family accepted plan for sedation. Patient re-evaluated immediately prior to sedation.
--- NOTE | 2024-03-21 11:22 | WPDCARDPROC ---
Cardiac Cath Procedure Note Date of procedure:: 03/21/24 Performing physician:: Red Gao MD Indication:: chronically implanted pacemaker at [facility] Brief clinical history:: this is an 83-year-old man with a chronically implanted pacemaker at [facility]. He also has a history of coronary artery disease and previous bypass grafting. He is admitted electively today as an outpatient for pacemaker generator change. Procedure Procedure performed:: Explant depleted pacemaker pulse generator implantation of new Biotronik dual-chamber pulse generator Sedation/Medication given:: fentanyl 25 Versed 2 mg Access site:: chronically implanted left chest wall pacemaker pocket Estimated blood loss:: minimal Procedure note:: patient was brought to the cardiac catheterization lab in the postabsorptive state he patient received intravenous vancomycin prior to the procedure following this he was brought to the manager labor relations and at the left anterior chest wall prepped and draped in usual fashion. Anesthesia was infiltrated with 20 cc 1% lidocaine with the pocket. Incision was then made using the scalpel over the chronically implanted device. Electrocautery was used to provide cutaneous hemostasis. Sharp and blunt dissection was used to separate the subcutaneous tissue and down to the fibrous capsule. This was then opened using Metzenbaum scissors and the chronically implanted pacemaker in the attached leads were visually intact and unremarkable in appearance. The device was removed from the pocket and the leads were disconnected using the torque wrench. the new pacemaker generator detailed below was connected to the leads using the same torque wrench and the entire assembly was placed back into the pocket. The pocket was irrigated with antibiotic infused saline. After this the pocket was closed in layers using 3-0 Vicryl in an interrupted fashion for the subcutaneous tissue and 4-0 Vicryl in a running subcuticular fashion for the skin. The wound was dressed with and Aquacel dressing patient tolerated procedure well and had no complications he was taken to [facility] on her postprocedural recovery. Findings:: The explanted device is a Biotronik dual-chamber pacemaker model Evia DR-T serial number [id number]. originally implanted May 24, 2012. The new pacemaker generator is a model Amvia Edge DR-T [id number]. serial number [id number]. device is programmed in the VVI / CLS mode lower rate limit is 70. The atrial lead is a chronically implanted Biotronik bipolar lead model Setrox S45 serial number [id number]. originally implanted May 24, 2012. Sensing is 1.9 mV impedance 566. No threshold this the patient is in atrial fibrillation the ventricular lead is a chronically implanted Biotronik bipolar lead model Setrox S53 serial number [id number]. originally implanted May 24, 2012. R-waves are sensed at 11.2 mV threshold is 0.9 volts at 0.4 milliseconds impedance 625 Ohms. Conclusion:: 1. Successful uncomplicated explantation of depleted pacemaker pulse generator 2. successful uncomplicated implantation of permanent Biotronik dual-chamber pulse generator for ongoing treatment of atrial fib with slow ventricular response, symptomatic bradycardia in this 83-year-old man. device is programmed in VVI mode with chronic atrial fibrillation Red Gao MD [facility]
[2024-03-21 11:42] VITALS: BP 134/92; PULSE 70; RESP 14; O2SAT 96
[2024-03-21 11:50] VITALS: BP 144/71; PULSE 70; RESP 22; O2SAT 98
[2024-03-21 12:00] VITALS: BP 138/77; PULSE 70; RESP 20; O2SAT 97
[2024-03-21 12:15] VITALS: BP 151/84; PULSE 70; RESP 15; O2SAT 98
[2024-03-21 12:27] VITALS: BP 115/84; PULSE 70; RESP 18; O2SAT 96
== END 2024-03-21 12:48 | disposition home or self-care (01) ==
PROVIDERS: PCP Family Medicine Adolescent Medicine; Visit Provider Specialist
PROC: 0JPT0PZ Removal of Cardiac Rhythm Related Device from Trunk Subcutaneous Tissue and Fascia, Open Approach (ICD-10-PCS; CPT 33228; principal; 2024-03-21 10:30)
DX: Z45.010 Encounter for checking and testing of cardiac pacemaker pulse generator [battery] (principal); I48.91 Unspecified atrial fibrillation; I25.10 Atherosclerotic heart disease of native coronary artery without angina pectoris; J44.9 Chronic obstructive pulmonary disease, unspecified; I25.2 Old myocardial infarction; Z85.46 Personal history of malignant neoplasm of prostate; Z95.1 Presence of aortocoronary bypass graft; F17.210 Nicotine dependence, cigarettes, uncomplicated
CPT/HCPCS: 33228; C1785; J0690; J2003; J2250; J3010; J3370; J7040

== ENCOUNTER → 2024-04-05 13:56 | Outpatient (REF) | payer MEDICARE, SELFPAY | LOC: ANHLAB 13:56 | PROVIDERS: PCP Family Medicine Adolescent Medicine; Visit Provider Plastic Surgery | DX: L72.0 Epidermal cyst (principal) | CPT/HCPCS: 88305 ==

== ENCOUNTER → 2024-04-19 11:13 | Outpatient (REF) | payer MEDICARE, SELFPAY | LOC: ANHLAB 11:13 | PROVIDERS: PCP Family Medicine Adolescent Medicine; Visit Provider Plastic Surgery | DX: C44.319 Basal cell carcinoma of skin of other parts of face (principal) | CPT/HCPCS: 88305 ==